=== PATIENT | female | born 1955 | race Caucasian/White ===

== ENCOUNTER 2022-12-26 09:59 | Outpatient (CLI) | payer SELFPAY ==
--- NOTE | 2022-12-27 12:34 | XRAY Report ---
PROCEDURE: Cervical Spine 2 View INDICATIONS: CERVICAL RADICULPATHY TECHNIQUE: 3 view(s) of the cervical spine were acquired. COMPARISON: None. FINDINGS: Bones: No fractures or dislocations to the C7 level. The lateral masses of C1 appear intact on the odontoid view. No suspicious bony lesions. Multilevel degenerative disc disease, moderate at C3-C4 and C4-C5, and mild at C2-C3, C5-C6 and C6-C7. Bilateral facet arthropathy scattered in cervical spin e, most pronounced and moderate at C4-C5. Soft tissues: No prevertebral soft tissue swelling. IMPRESSION: 1. Degenerative disc and facet disease in cervical spine. Consider MRI for further evaluation if clin ical symptoms persist. Reviewed by: Isidra Headley MD on 12/27/2022 12:33 PM PDT Approved by: Isidra Headley MD on 12/27/2022 12:33 PM PDT Station ID: [id number]
== END 2022-12-26 10:00 | disposition home or self-care (01) ==
LOC: DI 09:59
PROVIDERS: ATTEND Registered Nurse
DX: M50.31 Other cervical disc degeneration, high cervical region (principal); M47.812 Spondylosis without myelopathy or radiculopathy, cervical region

== ENCOUNTER 2024-03-27 14:00 | Outpatient (CLI) | payer SELFPAY | END 2024-03-27 23:59 | disposition short-term general hospital (02) | LOC: EMS 14:00 | PROVIDERS: ATTEND Emergency Medicine | DX: R11.2 Nausea with vomiting, unspecified (principal); R42 Dizziness and giddiness | CPT/HCPCS: A0425; A0427 ==

== ENCOUNTER 2025-08-02 09:57 | Inpatient (IN) ==
[2025-08-02] MEDS: HYDROmorphone 1 MG/ML CARPUJECT IVP STA (10:21)
--- NOTE | 2025-08-02 10:23 | ED Physician Documentation ---
History of Present Illness Stated complaint Stated Complaint: L HIP PX Chief complaint Chief Complaint: Trauma Ext History obtained from History obtained from: Patient and EMS History of Present Illness Pain level max: 10 Pain level now: 5 Additonal information Additional information: Patient is a 69-year-old female who presents to the emergency department after a trip and fall this morning. She states that she was walking, felt dizzy and lost her balance. She fell landing on her cane. No head, neck, back pain. Not on blood thinners. Complains of left hip pain and left knee pain. No chest pain or palpitations. No seizure activity. Given fentanyl by EMS. [place] Coma Scale Assess Eye opening: Spontaneous Verbal response: Oriented Motor response: Obeys Commands Total score: 15 Review of Systems Constitutional Denies: Fever or Chills Gastrointestinal Denies: Nausea or Vomiting Integumentary/Breast Denies: Rash Neurological Denies: Headache Meds/Allgy Home Medications Ambulatory Orders Medication Instructions Recorded Confirmed amlodipine 5 mg tablet 5 mg PO DAILY 08/02/2508/02 atorvastatin 20 mg tablet 20 mg PO HS 08/02/25 bupropion HCl 150 mg 24 hr tablet, 150 mg PO DAILY 08/02/25 extended release ibuprofen 200 mg tablet (Advil) 400 mg PO BID PRN feve r or pain 08/02/25 08/02/25 losartan 100 mg tablet 100 mg PO DAILY 08/02/25 metformin 500 mg tablet,extended 500 mg PO BID 5 08/02/25 release 24 hr Allergies Allergies Allergy/AdvReac Type Severity Reaction Status Date / Time codeine AdvReac Mild Itching Verified 08/02/25 10:07 PFSH Active Problems All Active Problems (Updated 08/02/25 @ 11:05 by Chai Ferreira RN) Fracture of left hip (Acute) Medical History Medical History (Updated 08/02/25 @ 11:05 by Chai Ferreira RN) DM2 (diabetes mellitus, type 2) HLD (hyperlipidemia) HTN (hypertension) TIA (transient ischemic attack) Surgical History Surgical History (Updated 08/02/25 @ 11:05 by Chai Ferreira RN) Hx of exploratory laparotomy Hx of hysterectomy Hx of tonsillectomy Social History Social History (Updated 08/02/25 @ 11:05 by Chai Ferreira RN) Do you dip or chew tobacco?: No Do you vape?: No Living arrangement: At home Level: Independent Do you feel safe in your home environment?: Yes History of physical, verbal, emotional, or financial abuse?: No Exam Exam Vital Signs: Vital Signs x48h Temp Pulse Resp BP Pulse Ox O2 Flow Rate 08/02/25 13:00 79 18 179/84 H 95 08/02/25 12:51 78 18 178/86 H 92 08/02/25 11:32 75 14 93 2 08/02/25 11:30 75 14 88 L 08/02/25 11:23 79 18 191/87 H 94 08/02/25 11:07 80 18 167/97 H 97 08/02/25 10:52 76 18 193/94 H 92 08/02/25 10:07 36.5 C 75 20 213/90 H 97 Constitutional normal general appearance and no apparent distress HENMT normocephalic, head/scalp atraumatic and TMs normal bilaterally Eyes PERRL and EOMs intact bilaterally Neck/C-Spine visual inspection normal, trachea midline, cervical spine nontender and cervical full ROM noted No tenderness to palpation or percussion. No step-off or deformity. Chest inspection of chest normal and palpation of chest normal Respiratory breath sounds equal bilaterally, normal respiratory effort and clear to auscultation bilaterally Cardiovascular normal heart rate noted and regular rhythm noted Gastrointestinal abdomen normal to inspection, abdomen soft to palpation, nontender to palpation, nontender to percussion and nondistended Genitourinary no CVA tenderness Back/Pelvis spine normal to inspection, no thoracic spine tenderness and no lumbar spine tenderness No tenderness to palpation or percussion. No step-off or deformity over the thoracolumbar spine Extremities full ROM Normal examination of the right leg. Left leg is externally rotated and shortened. Severe pain with any motion of the hip. Neurovascular intact. Also has some mild diffuse tenderness over the left knee. No deformity. No swelling. Neurology financial recruiter II-XII intact and GCS 15 Psychiatry mental status grossly normal and oriented x3 Skin skin color normal Results Vitals Vitals: Vital Signs - 24 hr 08/02/25 10:07 08/02/25 10:21 08/02/25 10:52 Temperature 36.5 C Temperature Source Temporal Artery Scan Pulse Rate 75 76 Respiratory Rate 20 18 Blood Pressure 213/90 H 193/94 H O2 Saturation 97 92 Oxygen Delivery Method O2 Source Room air Room air Oxygen Flow Rate If not protocol: Oxygen Flow, liters/minute Pain Intensity 3 8 08/02/25 11:07 08/02/25 11:22 08/02/25 11:23 Temperature Temperature Source Pulse Rate 80 79 Respiratory Rate 18 18 Blood Pressure 167/97 H 191/87 H O2 Saturation 97 94 Oxygen Delivery Method O2 Source Room air Room air Oxygen Flow Rate If not protocol: Oxygen Flow, liters/minute Pain Intensity 8 7 7 08/02/25 11:30 08/02/25 11:30 08/02/25 11:32 Temperature Temperature Source Pulse Rate 75 75 Respiratory Rate 14 14 Blood Pressure O2 Saturation 88 L 93 Oxygen Delivery Method Nasal Cannula O2 Source Room air Nasal cannula Oxygen Flow Rate 2 If not protocol: Oxygen Flow, liters/minute 2 Pain Intensity 08/02/25 11:56 08/02/25 12:51 08/02/25 13:00 Temperature Temperature Source Pulse Rate 78 79 Respiratory Rate 18 18 Blood Pressure 178/86 H 179/84 H O2 Saturation 92 95 Oxygen Delivery Method O2 Source Room air Room air Oxygen Flow Rate If not protocol: Oxygen Flow, liters/minute Pain Intensity 7 4 6 Oxygen O2 Source Room air Oxygen Flow Rate 2 Labs Labs: Laboratory Tests 08/02/25 11:02 WBC 10.5 RBC 4.45 Hgb 12.9 Hct 40.9 MCV 91.9 MCH 29.0 MCHC 31.5 L RDW 13.9 Plt Count 128 L MPV 10.5 Neut # (Auto) 8.3 H Lymph # (Auto) 1.3 L [place] # (Auto) 0.7 Eos # (Auto) 0.1 Baso # (Auto) 0.1 Absolute Nucleated RBC 0.00 Nucleated RBC % 0.0 Sodium 139 Potassium 4.0 Chloride 105 Carbon Dioxide 28 Anion Gap 6.0 BUN 18 Creatinine 0.8 Estimated GFR (MDRD) 71 L Glucose 169 H Calcium 9.0 Total Bilirubin 0.8 AST 14 ALT 17 Alkaline Phosphatase 76 Total Protein 6.5 Albumin 3.9 Globulin 2.6 Albumin/Globulin Ratio 1.5 Rads (name of study) Left hip x-ray, left knee x-ray: Relevant Findings:: Final report received PD Medical Decision Making ED course Complexity details: reviewed results, re-evaluated patient, considered differential and d/w patient ED course: Patient is a 6-year-old female who presents to the emergency department after ground-level fall. Found to have a left hip fracture, displaced intertrochanter fracture with extension to the proximal femoral diaphysis. No acute findings on x-ray of the left knee. Given Dilaudid and Valium for pain. Anesthesia consulted and will come perform a fascia iliac a block. Will admit the patient to the hospitalist service. Discussed with Dr. Morales, orthopedics who will consult on the patient and plan for OR in the morning. Discussed with hospitalist who accepts This document was made in part using voice recognition software. While efforts are made to proofread this document, sound alike and grammatical errors may occur. Discharge Plan Discharge Patient Disposition: 66 [facility] DC/Xfer Condition: Stable Clinical Impression: Fracture of left hip Qualifiers: Encounter type: initial encounter Fracture type: closed Qualified Code(s): S72.002A - Fracture of unspecified part of neck of left femur, initial encounter for closed fracture Prescriptions: No Action atorvastatin 20 mg tablet 20 mg PO HS Patient Comments: TAKE ONE TABLET BY MOUTH NIGHTLY AT BEDTIME for cholesterol amlodipine 5 mg tablet 5 mg PO DAILY Patient Comments: TAKE ONE TABLET BY MOUTH ONE TIME DAILY losartan 100 mg tablet 100 mg PO DAILY Patient Comments: TAKE ONE TABLET BY MOUTH ONE TIME DAILY for blood pressure metformin 500 mg tablet extended release 24 hr 500 mg PO BID Patient Comments: TAKE ONE TABLET BY MOUTH TWICE DAILY for diabetes bupropion HCl 150 mg tablet extended release 24 hr 150 mg PO DAILY Patient Comments: TAKE ONE TABLET BY MOUTH EVERY MORNING ibuprofen [Advil] 200 mg tablet 400 mg PO BID PRN (Reason: fever or pain) Print Language: Com[place]an
--- NOTE | 2025-08-02 10:58 | XRAY Report ---
PROCEDURE: XR Hip w/Pelvis 2-3V LT INDICATIONS: fall, pain TECHNIQUE: AP pelvis with lateral view(s) of the hip(s). COMPARISON: None. FINDINGS: Bones: Comminuted fracture is present at the proximal femoral diaphysis. There is involvement of the lesser trochanter. Ill-defined suspected nondisplaced fracture lucency also extends to the greater trochanter. No dislocation at the hip joint. Soft tissues: No suspicious soft tissue calcifications or masses. IMPRESSION: Mildly displaced intertrochanteric fracture with extension to the proximal femoral diaphysis. Reviewed by: Alva Garcia MD on 08/02/2025 10:54 AM [facility] Approved by: Alva Garcia MD on 08/02/2025 10:54 AM PST Station ID: [id number]
--- NOTE | 2025-08-02 10:58 | XRAY Report ---
PROCEDURE: XR Knee 3V LT INDICATIONS: fall, pain TECHNIQUE: 3 views of the knee(s) were acquired. COMPARISON: None. FINDINGS: Bones: No fractures or dislocations. No suspicious bony lesions. Moderate to severe tricompartmental arthritic change. There is lateral patellar subluxation. Soft tissues: Minimal knee joint effusion. No suspicious soft tissue calcifications or masses. IMPRESSION: No visualized acute fracture or dislocation. However, occult injury can not be excluded. Recommend short interval imaging follow-up in 7-10 days as clinically indicated for additional evaluation. Reviewed by: Alva Garcia MD on 08/02/2025 10:55 AM [facility] Approved by: Alva Garcia MD on 08/02/2025 10:55 AM [facility] Station ID: [id number]
[2025-08-02 11:07] LABS: HCT - HEMATOCRIT 40.9 % (37.0-47.0); HGB - HEMOGLOBIN 12.9 g/dL (12.0-16.0); MEAN PLATELET VOLUME 10.5 fL (7.9-10.8); NRBC ABSOLUTE COUNT (AUTO) 0.00 x10^3/uL; NUCLEATED RED BLOOD CELLS AUTO 0.0 /100WBC; PLT - PLATELET COUNT 128 10^3/uL (130-450); RED CELL DISTRIBUTION WIDTH 13.9 % (12.0-15.0)
--- NOTE | 2025-08-02 11:14 | HISTORY & PHYSICAL EXAMINATION ---
Chief Complaint Chief Complaint Chief Complaint: Fall at home History of Present Illness Admitted From Admitted From:: Home History Obtained From Records Reviewed: EMR History obtained from: Patient Exam Limitations: None History of Present Illness HPI Comment/Other: Patient is a 69 year old female with a history of insulin dependent diabetes mellitus, hypertension who presents after a ground level fall. Per patient, since 2022, and her TIA, she has had increased episodes of vertigo. When seasons change, like right now from fall to winter, she has increased episodes of vertigo. She has bilateral ear fullness, as well as sinus congestion which triggers this. This morning, she was walking towards the kitchen. She leaned forward to take out her tapioca pudding, and had an episode of vertigo, and fell forward onto her left hip. She has had severe pain since then. He has been Past medical history includes TIA, hyperlipidemia, hypertension, [id number] diabetes mellitus. She has no cardiac history. She does have chronic arthritis in multiple joints, requiring her to use a walker to ambulate. Medications include metformin, losartan, amlodipine, bupropion. She is not on an blood thinners. She has no known drug allergies. Codeine does cause her to feel nauseous. Surgical history includes , hysterectomy. She has not had any adverse reactions to anesthesia. She denies any alcohol use. She uses edible marijuana for pain relief. She smokes half a pack of cigarettes per day. She lives with her son. Ambulates with walker. Meds/Allgy Home Medications Ambulatory Orders Medication Instructions Recorded Confirmed amlodipine 5 mg tablet 5 mg PO DAILY 08/02/2508/02 atorvastatin 20 mg tablet 20 mg PO HS 08/02/25 bupropion HCl 150 mg 24 hr tablet, 150 mg PO DAILY 08/02/25 extended release ibuprofen 200 mg tablet (Advil) 400 mg PO BID PRN feve r or pain 08/02/25 08/02/25 losartan 100 mg tablet 100 mg PO DAILY 08/02/25 metformin 500 mg tablet,extended 500 mg PO BID 08/02/25 release 24 hr Allergies Allergies Allergy/AdvReac Type Severity Reaction Status Date / Time codeine AdvReac Mild Itching Verified 08/02/25 10:07 [facility] Active Problems All Active Problems Fracture of left hip (Acute) Medical History Medical History DM2 (diabetes mellitus, type 2) HLD (hyperlipidemia) HTN (hypertension) TIA (transient ischemic attack) Surgical History Surgical History Hx of exploratory laparotomy Hx of hysterectomy Hx of tonsillectomy Social History Social History Smoking Status: Current every day smoker Do you dip or chew tobacco?: No Do you vape?: No Living arrangement: At home Level: Assisted Do you feel safe in your home environment?: Yes History of physical, verbal, emotional, or financial abuse?: No Substance Use: cannabis (any form) Substance Use Details: edibles for nighttime and pain relief POLST Patient has POLST: No Review of Systems Constitutional Denies: Fatigue, Fever, Chills, Malaise, Weakness or Poor appetite Eyes Denies: Pain or Irritation Ears, nose, mouth, and throat Reports: Nasal congestion, Post nasal drip and Vertigo; Denies: Ear pain, Hearing loss, Tinnitus, Nose bleeds or Nasal discharge Cardiovascular Denies: Irregular heart rate, chest pain, palpitations, edema, Syncope or shortness of breath with exertion Respiratory Denies: Shortness of breath, Cough or Sputum production Gastrointestinal Denies: Abdominal pain, Abdominal distention, Nausea or Vomiting Genitourinary Denies: Painful urination, Urinary frequency or Urinary urgency Musculoskeletal Reports: Back pain, Extremity pain and Joint pain; Denies: Extremity swelling Integumentary/Breast Denies: Rash, Itching, Dryness, Redness or Skin pain Neurological Reports: General weakness and Vertigo; Denies: Headache, Weakness in extremities, Numbness in extremities, Abnormal gait or Dizziness Psychiatric Denies: Depression, Anxiety or Mood swings Endocrine Denies: Excessive urination, Excessive thirst or Fatigue Hematologic/Lymphatic Denies: Anemia or Easy bruising Allergic/Immunologic Denies: Hives or Tongue swelling Prior Level of Functionality: Lives alone. Largely independent of ADLs. Exam Exam Vital Signs: Vital Signs x48h Temp Pulse Pulse Resp BP BP Pulse Ox 08/02/25 15:30 97.9 F 80 20 175/83 H 94 08/02/25 15:16 76 18 183/116 H 94 08/02/25 14:48 82 18 177/117 H 95 08/02/25 14:24 82 17 188/85 H 97 08/02/25 13:00 79 18 179/84 H 95 08/02/25 12:51 78 18 178/86 H 92 08/02/25 11:32 75 14 93 08/02/25 11:30 75 14 88 L 08/02/25 11:23 79 18 191/87 H 94 08/02/25 11:07 80 18 167/97 H 97 08/02/25 10:52 76 18 193/94 H 92 08/02/25 10:07 97.7 F 75 20 213/90 H 97 O2 Flow Rate 08/02/25 15:30 08/02/25 15:16 08/02/25 14:48 08/02/25 14:24 08/02/25 13:00 08/02/25 12:51 08/02/25 11:32 2 08/02/25 11:30 08/02/25 11:23 08/02/25 11:07 08/02/25 10:52 08/02/25 10:07 Constitutional normal general appearance, distress noted (moderate), abnormal body habitus (obese) and no limitations HENMT normocephalic, head/scalp atraumatic and hearing grossly normal bilaterally Eyes PERRL and EOMs intact bilaterally Neck/C-Spine visual inspection normal and trachea midline Chest inspection of chest normal Respiratory breath sounds equal bilaterally, normal respiratory effort, clear to auscultation bilaterally, no wheezes, no rales and no retractions Cardiovascular normal heart rate noted, regular rhythm noted, no gallop, no rub and murmur noted (systolic) Gastrointestinal abdomen normal to inspection, abdomen soft to palpation, nontender to palpation and normoactive bowel sounds Genitourinary no CVA tenderness and bladder normal to palpation Back/Pelvis spine normal to inspection Neurology no movement abnormality noted and no focal motor deficit noted Left lower extremity externally rotated, tenderness to even light palpation. Psychiatry mental status grossly normal, oriented x3, thought process normal, cooperative and affect normal Skin skin color normal, no rash, no lesions and no wounds Conclusion/Plan Problem List (1) Fracture of left hip: Plan: Patient presented after a mechanical fall. Hip x-ray shows mildly displaced intertrochanteric fracture with extension to the proximal femoral diaphysis. Orthopedic surgery consulted. NPO at midnight. DVT prophylaxis held until post surgery in AM. Continue Tylenol as needed for mild pain, oxycodone as needed for moderate pain, Dilaudid as needed for severe pain. Flexeril as needed as well. RCRI of 1 for history of vascular disease with previous TIA. 1.1% risk of major cardiac event. METS of 3-4. Patient is able to ambulate up a flight of stairs, but has difficulty due to underlying osteoarthritis. No active chest pain, CHF symptoms, etc. EKG ordered. Will consult PT after, patient will likely require SNF on discharge. Qualifiers: Encounter type: initial encounter Fracture type: closed Qualified Code(s): S72.002A - Fracture of unspecified part of neck of left femur, initial encounter for closed fracture (2) DM2 (diabetes mellitus, type 2): Plan: Patient takes metformin at home. Continue low-dose sliding scale while here. Carb controlled diet. Qualifiers: Diabetes mellitus complication status: without complication Diabetes mellitus credit cashier insulin use: without mcfp use Qualified Code(s): E11.9 - Type 2 diabetes mellitus without complications (3) HLD (hyperlipidemia): Plan: Continue statin. Qualifiers: Hyperlipidemia type: unspecified Qualified Code(s): E78.5 - Hyperlipidemia, unspecified (4) HTN (hypertension): Plan: Continue losartan, amlodipine. Qualifiers: Hypertension type: unspecified Qualified Code(s): I10 - Essential (primary) hypertension Lab Results Lab results reviewed: Yes 08/02/25 11:02 08/02/25 11:02 Diagnostic Imaging Results Diagnostic Imaging Results: positive Final report reviewed Core Measures Anticipated LOS I expect patient to be DC'd or transferred within 96 hours.: Yes DVT/VTE - Prophylaxis VTE/DVT Device ordered at admit?: No VTE/DVT Prophylaxis med ordered at admit?: Yes Stroke - Rehab Assessment Rehab services assessment to be ordered?: Yes AMI - Statin at Admit Aspirin Prescribed on Admit: No Not Ordered - Medical Reason: Not indicated
[2025-08-02 11:21] LABS: ALT ALANINE AMINOTRANSFERASE 17.0 IU/L (10-60); AST ASPARTATE AMINOTRANSFERASE 14.0 IU/L (10-42); BUN - BLOOD UREA NITROGEN 18.0 mg/dL (6-20); CARBON DIOXIDE - CO2 28.0 mmol/L (21-32); CREATININE 0.8 mg/dL (0.6-1.3); GFR - MDRD 71.0 (>89)
[2025-08-02] MEDS: diazePAM INJ 5 MG/ML SYRINGE IVP STA (11:21)
[2025-08-02] MEDS: SODIUM CHLORIDE 0.9% 1,000 ML IV STA (11:50)
[2025-08-02] MEDS: HYDROmorphone 1 MG/ML CARPUJECT IVP PRN (11:56)
[2025-08-02] MEDS ORDERED: ROPIVACAINE 0.5% PF 20 ML VIAL ONE (13:35)
[2025-08-02] MEDS ORDERED: SODIUM CHLORIDE FLUSH 0.9% 10 ML SYRINGE IVP PRN (15:24)
[2025-08-02] MEDS: SODIUM CHLORIDE FLUSH 0.9% 10 ML SYRINGE IVP SCH (16:39)
[2025-08-02] MEDS: oxyCODONE 5 MG TABLET PO PRN (16:39)
[2025-08-02] MEDS ORDERED: ONDANSETRON 4 MG/2 ML VIAL IVP PRN (17:00)
[2025-08-02] MEDS ORDERED: ONDANSETRON ODT 4 MG TABLET TL PRN (17:00)
[2025-08-02] MEDS: BACLOFEN 10 MG TABLET PO PRN (17:13)
[2025-08-02] MEDS: METOCLOPRAMIDE 10 MG/2 ML VIAL IVP PRN (17:14)
--- NOTE | 2025-08-02 17:47 | PHARMACY PROGRESS NOTE ---
Best Possible Medication History Admit Date and Time: 08/02/25 [id number] Home Medications Medication Instructions Recorded Confirmed Type amlodipine 5 mg tablet 5 mg PO DAILY 08/02/2508/02 History atorvastatin 20 mg tablet 20 mg PO HS 08/02/25 History bupropion HCl 150 mg 24 hr tablet, 150 mg PO DAILY 08/02/25 History extended release ibuprofen 200 mg tablet (Advil) 400 mg PO BID PRN feve r or pain 08/02/25 08/02/25 History losartan 100 mg tablet 100 mg PO DAILY PM 08/02/25 08/02/25 History metformin 500 mg tablet,extended 500 mg PO BID 08/02/25 History release 24 hr Processed by: Pharmacy Medications reviewed in ED?: Yes Medication History completed: Yes Patient Interview: Completed Secondary Source(s): Insurance records [facility] Statement: As the person ultimately responsible for medication therapy, providers are able to order a medication from an existing home medication list in [facility] via the "Reconcile Routine" prior to Confirmation of that medication by academic support director. Such practice is discouraged except when the physician, in their clinical judgment, deems that a medical need exists for a medication without regard to previous use.
[2025-08-02] MEDS: INSULIN LISPRO 300 UNIT/3 ML PEN SUBQ SCH (19:14)
[2025-08-02] MEDS: CALCIUM CARBONATE CHEW 500 MG TABLET PO SCH (21:33)
[2025-08-02] MEDS: ATORVASTATIN 10 MG TABLET PO SCH (21:33)
[2025-08-03 06:17] LABS: HCT - HEMATOCRIT 37.9 % (37.0-47.0); HGB - HEMOGLOBIN 12.4 g/dL (12.0-16.0); MEAN PLATELET VOLUME 11.3 fL (7.9-10.8); PLT - PLATELET COUNT 107.0 10^3/uL (130-450); RED CELL DISTRIBUTION WIDTH 13.9 % (12.0-15.0)
[2025-08-03 06:37] LABS: BUN - BLOOD UREA NITROGEN 15.0 mg/dL (6-20); CARBON DIOXIDE - CO2 26.0 mmol/L (21-32); CREATININE 0.7 mg/dL (0.6-1.3); GFR - MDRD 83.0 (>89)
--- NOTE | 2025-08-03 08:27 | CONSULTATION NOTE ---
Chief Complaint Chief Complaint Chief Complaint: L IT fx s/p fall History of Present Illness History of Present Illness HPI Comment/Other: consulted on this 69 yo F for Mildly displaced L intertrochanteric fracture with extension to the proximal femoral diaphysis. Per patient, since 2022, and her TIA, she has had increased episodes of vertigo. This morning, she was walking towards the kitchen and had an episode of vertigo, and fell forward onto her left hip. She has had severe pain since then. Past medical history includes TIA, hyperlipidemia, hypertension, [id number] diabetes mellitus. She has no cardiac history. She does have chronic arthritis in multiple joints, requiring her to use a walker to ambulate. PFSH Active Problems All Active Problems (Updated 08/03/25 @ 08:45 by Amalia Wong PA-C) Fall (Acute) Fracture of left hip (Acute) Medical History Medical History DM2 (diabetes mellitus, type 2) HLD (hyperlipidemia) HTN (hypertension) TIA (transient ischemic attack) Surgical History Surgical History Hx of exploratory laparotomy Hx of hysterectomy Hx of tonsillectomy Social History Social History Smoking Status: Current every day smoker Do you dip or chew tobacco?: No Do you vape?: No Living arrangement: At home Level: Assisted Home Mobility Equipment: Cane and Walker Do you feel safe in your home environment?: Yes History of physical, verbal, emotional, or financial abuse?: No Substance Use: cannabis (any form) Substance Use Details: edibles for nighttime and pain relief POLST Patient has POLST: No Meds/Allgy Home Medications Ambulatory Orders Medication Instructions Recorded Confirmed amlodipine 5 mg tablet 5 mg PO DAILY 08/02/2508/02 atorvastatin 20 mg tablet 20 mg PO HS 08/02/25 5 bupropion HCl 150 mg 24 hr tablet, 150 mg PO DAILY 08/02/25 extended release ibuprofen 200 mg tablet (Advil) 400 mg PO BID PRN feve r or pain 08/02/25 08/02/25 losartan 100 mg tablet 100 mg PO DAILY PM 08/02/25 08/02/25 metformin 500 mg tablet,extended 500 mg PO BID 5 08/02/25 release 24 hr Allergies Allergies Allergy/AdvReac Type Severity Reaction Status Date / Time codeine AdvReac Mild Itching Verified 08/02/25 10:07 Results Lab Results Lab results reviewed: Yes 08/03/25 05:15 08/03/25 05:15 Other Lab Results: Lab Results x24hrs 08/03/25 08/03/25 08/02/25 Range/Units 08:20 05:15 21:02 WBC 10.4 (4.8-10.8) x10^3/uL RBC 4.15 L (4.20-5.40) 10^6/uL Hgb 12.4 (12.0-16.0) g/dL Hct 37.9 (37.0-47.0) % MCV 91.3 (81.0-99.0) fL MCH 29.9 (27.0-31.0) pg MCHC 32.7 (32.0-36.0) g/dL RDW 13.9 (12.0-15.0) % Plt Count 107 L (130-450) 10^3/uL MPV 11.3 H (7.9-10.8) fL Neut # (Auto) (1.5-6.6) 10^3/uL Lymph # (Auto) (1.5-3.5) 10^3/uL [place] # (Auto) (0.0-1.0) 10^3/uL Eos # (Auto) (0.0-0.7) 10^3/uL Baso # (Auto) (0.0-0.1) 10^3/uL Absolute Nucleated RBC x10^3/uL Nucleated RBC % /100WBC Sodium 140 (135-145) mmol/L Potassium 3.7 (3.5-4.5) mmol/L Chloride 106 (101-111) mmol/L Carbon Dioxide 26 (21-32) mmol/L Anion Gap 8.0 (6-13) BUN 15 (6-20) mg/dL Creatinine 0.7 (0.6-1.3) mg/dL Estimated GFR (MDRD) 83 L (>89) Glucose 112 H (74-104) mg/dL POC Whole Bld Glucose 125 184 (70-100) mg/dL Calcium 9.0 (8.5-10.3) mg/dL Magnesium 1.9 (1.7-2.3) mg/dL Total Bilirubin (0.2-1.0) mg/dL AST (10-42) IU/L ALT (10-60) IU/L Alkaline Phosphatase (42-121) IU/L Total Protein (6.4-8.9) g/dL Albumin (3.2-5.5) g/dL Globulin (2.1-4.2) g/dL Albumin/Globulin Ratio (1.0-2.2) 08/02/25 08/02/25 Range/Units 15:47 11:02 WBC 10.5 (4.8-10.8) x10^3/uL RBC 4.45 (4.20-5.40) 10^6/uL Hgb 12.9 (12.0-16.0) g/dL Hct 40.9 (37.0-47.0) % MCV 91.9 (81.0-99.0) fL MCH 29.0 (27.0-31.0) pg MCHC 31.5 L (32.0-36.0) g/dL RDW 13.9 (12.0-15.0) % Plt Count 128 L (130-450) 10^3/uL MPV 10.5 (7.9-10.8) fL Neut # (Auto) 8.3 H (1.5-6.6) 10^3/uL Lymph # (Auto) 1.3 L (1.5-3.5) 10^3/uL [place] # (Auto) 0.7 (0.0-1.0) 10^3/uL Eos # (Auto) 0.1 (0.0-0.7) 10^3/uL Baso # (Auto) 0.1 (0.0-0.1) 10^3/uL Absolute Nucleated RBC 0.00 x10^3/uL Nucleated RBC % 0.0 /100WBC Sodium 139 (135-145) mmol/L Potassium 4.0 (3.5-4.5) mmol/L Chloride 105 (101-111) mmol/L Carbon Dioxide 28 (21-32) mmol/L Anion Gap 6.0 (6-13) BUN 18 (6-20) mg/dL Creatinine 0.8 (0.6-1.3) mg/dL Estimated GFR (MDRD) 71 L (>89) Glucose 169 H (74-104) mg/dL POC Whole Bld Glucose 155 (70-100) mg/dL Calcium 9.0 (8.5-10.3) mg/dL Magnesium (1.7-2.3) mg/dL Total Bilirubin 0.8 (0.2-1.0) mg/dL AST 14 (10-42) IU/L ALT 17 (10-60) IU/L Alkaline Phosphatase 76 (42-121) IU/L Total Protein 6.5 (6.4-8.9) g/dL Albumin 3.9 (3.2-5.5) g/dL Globulin 2.6 (2.1-4.2) g/dL Albumin/Globulin Ratio 1.5 (1.0-2.2) Diagnostic Imaging Results Diagnostic Imaging Results: positive Final report reviewed Diagnostic Imaging Results Comments: L hip & pelvis XR: Mildly displaced L intertrochanteric fracture with extension to the proximal femoral diaphysis. L knee XR: no acute fx/dislocation Review of Systems Status of ROS: 10 or more systems reviewed and unremarkable except as noted in history and below Exam Exam Vital Signs: Vital Signs x48h Temp Pulse Resp BP Pulse Ox 08/03/25 08:02 36.6 C 85 18 187/85 H 93 General appearance: alert, awake, oriented x 3, well-nourished, elevated BMI, painful distress Fracture: L hip IT fx Head/Eyes: atraumatic Extremities/Vascular: pedal pulses intact, radial pulses intact Musculoskeletal: LLE shortened & ER; Neuro/ROBOT TECHNICIAN: alert, follows commands; NVI Skin: warm, dry, intact, without erythema, warmth, ecchymosis LLE Psychiatry: normal affect Conclusion/Plan Problem List (1) Fracture of left hip: Qualifiers: Encounter type: initial encounter Fracture type: closed Qualified Code(s): S72.002A - Fracture of unspecified part of neck of left femur, initial encounter for closed fracture (2) Fall: Qualifiers: Encounter type: initial encounter Qualified Code(s): W19.XXXA - Unspecified fall, initial encounter (3) DM2 (diabetes mellitus, type 2): Qualifiers: Diabetes mellitus complication status: without complication Diabetes mellitus half-way insulin use: without half-way use Qualified Code(s): E11.9 - Type 2 diabetes mellitus without complications (4) HLD (hyperlipidemia): Qualifiers: Hyperlipidemia type: unspecified Qualified Code(s): E78.5 - Hyperlipidemia, unspecified (5) HTN (hypertension): Qualifiers: Hypertension type: unspecified Qualified Code(s): I10 - Essential (primary) hypertension Plan Bedrest pending OR this am with Dr. Morales for IM boyd L hip Med mgmt/pain control per internal medicine NPO/IVF Start DVT chemoprophylaxis postop D/w Dr. Morales who is in agreement with this plan Lab Results Lab results reviewed: Yes 08/03/25 05:15 08/03/25 05:15 Diagnostic Imaging Results Diagnostic Imaging Results: positive Final report reviewed
[2025-08-03] MEDS ORDERED: LIDOCAINE-PF 2% 10 ML AMP SUBQ ONE (09:02)
[2025-08-03] MEDS ORDERED: PROPOFOL 200 MG/20 ML VIAL IVP ONE ×3 (09:02→11:00)
[2025-08-03] MEDS ORDERED: BUPIVACAINE 0.25% PF 30 ML VIAL ONE (09:06)
[2025-08-03] MEDS: CHOLECALCIFEROL 25 MCG TABLET PO SCH (09:14)
[2025-08-03] MEDS: NYSTATIN POWDER 15 GM TOP SCH (09:14)
[2025-08-03] MEDS: LOSARTAN 50 MG TABLET PO SCH (09:14)
--- NOTE | 2025-08-03 09:15 | ANESTHESIA PROCEDURE NOTE ---
Pre-Anesthesia VS, & Labs Diagnosis Surgical Diagnosis:: L hip fracture Procedure Procedure: L hip nailing Vitals Vital Signs: Temp Pulse Resp BP Pulse Ox O2 Flow Rate 36.6 C 85 18 187/85 H 93 2 08/03/25 08:02 08/03/25 08:02 08/03/25 08:02 08/03/25 08:02 08/03/25 08:02 08/02/25 11:32 NPO NPO: >8 hours Is Patient ?: No and Not Applicable Lab Results Current Lab Results: Laboratory Tests 08/03/25 08:20: POC Whole Bld Glucose 125 08/03/25 05:15: WBC 10.4, RBC 4.15 L, Hgb 12.4, Hct 37.9, MCV 91.3, MCH 29.9, MCHC 32.7, RDW 13.9, Plt Count 107 L, MPV 11.3 H, Sodium 140, Potassium 3.7, Chloride 106, Carbon Dioxide 26, Anion Gap 8.0, BUN 15, Creatinine 0.7, E stimated GFR (MDRD) 83 L, Glucose 112 H, Calcium 9.0, Magnesium 1.9 08/02/25 21:02: POC Whole Bld Glucose 184 08/02/25 15:47: POC Whole Bld Glucose 155 08/02/25 11:02: WBC 10.5, RBC 4.45, Hgb 12.9, Hct 40.9, MCV 91.9, MCH 29.0, MCHC 31.5 L, RDW 13.9, Plt Count 128 L, MPV 10.5, Neut # (Auto) 8.3 H, Lymph # (Auto) 1.3 L, [place] # (Auto) 0.7, Eos # (Auto) 0.1, Baso # (Auto) 0.1, Absolute Nucleated RBC 0.00, Nucleated RBC % 0.0, Sodium 139, Potassium 4.0, Chloride 105, Carbon Dioxide 28, Anion Gap 6.0, BUN 18, Creatinine 0.8, Estimated GFR (MDRD) 71 L, Glucose 169 H, Calcium 9.0, Total Bilirubin 0.8, AST 14, ALT 17, Alkaline Phosphatase 76, Total Protein 6.5, Albumin 3.9, Globulin 2.6, Albumin/Globulin Ratio 1.5 08/03/25 05:15 08/03/25 05:15 Meds/Allgy Home Medications Ambulatory Orders Medication Instructions Recorded Confirmed amlodipine 5 mg tablet 5 mg PO DAILY 08/02/2508/02 atorvastatin 20 mg tablet 20 mg PO HS 08/02/25 bupropion HCl 150 mg 24 hr tablet, 150 mg PO DAILY 08/02/25 extended release ibuprofen 200 mg tablet (Advil) 400 mg PO BID PRN feve r or pain 08/02/25 08/02/25 losartan 100 mg tablet 100 mg PO DAILY PM 08/02/25 08/02/25 metformin 500 mg tablet,extended 500 mg PO BID 5 08/02/25 release 24 hr Allergies Allergies Allergy/AdvReac Type Severity Reaction Status Date / Time codeine AdvReac Mild Itching Verified 08/02/25 10:07 PFSH Active Problems All Active Problems Fall (Acute) Fracture of left hip (Acute) Medical History Medical History DM2 (diabetes mellitus, type 2) HLD (hyperlipidemia) HTN (hypertension) TIA (transient ischemic attack) Surgical History Surgical History Hx of exploratory laparotomy Hx of hysterectomy Hx of tonsillectomy Social History Social History Smoking Status: Current every day smoker Do you dip or chew tobacco?: No Do you vape?: No Living arrangement: At home Level: Assisted Home Mobility Equipment: Cane and Walker Do you feel safe in your home environment?: Yes History of physical, verbal, emotional, or financial abuse?: No Substance Use: cannabis (any form) Substance Use Details: edibles for nighttime and pain relief POLST Patient has POLST: No POLST CPR Status: Attempt Resuscitation (CPR) Level of Medical Intervention: Full Treatment Anesthesia Exam (Expanded) Exam General: Alert, Oriented x3 and Cooperative Dental: Poor dentition (many missing teeth throughout. remaining teeth are broken and rotten ) Mouth Openin Fingerbreadth Neck Mobility: Normal Mallampati classification: II Thyromental Distance: 4-6 cm Exam Exam Vital Signs: Vital Signs x48h Temp Pulse Resp BP Pulse Ox 08/03/25 08:02 36.6 C 85 18 187/85 H 93 Plan Problem List (1) Fracture of left hip: Qualifiers: Encounter type: initial encounter Fracture type: closed Qualified Code(s): S72.002A - Fracture of unspecified part of neck of left femur, initial encounter for closed fracture (2) Fall: Qualifiers: Encounter type: initial encounter Qualified Code(s): W19.XXXA - Unspecified fall, initial encounter (3) DM2 (diabetes mellitus, type 2): Qualifiers: Diabetes mellitus prison insulin use: without prison use Diabetes mellitus complication status: without complication Qualified Code(s): E11.9 - Type 2 diabetes mellitus without complications (4) HLD (hyperlipidemia): Qualifiers: Hyperlipidemia type: unspecified Qualified Code(s): E78.5 - Hyperlipidemia, unspecified (5) HTN (hypertension): Qualifiers: Hypertension type: unspecified Qualified Code(s): I10 - Essential (primary) hypertension Plan Bedrest pending OR this am with Dr. Morales for IM boyd L hip Med mgmt/pain control per internal medicine NPO/IVF Start DVT chemoprophylaxis postop D/w Dr. Morales who is in agreement with this plan Plan Anesthesia Type: General Consent for Procedure(s) Verified and Reviewed: Yes Code Status: Attempt Resuscitation ASA Classification ASA classification: 3-Severe systemic disease Is this case an emergency?: No
[2025-08-03] MEDS ORDERED: HYDROmorphone 0.5 MG/0.5 ML SYRINGE IVP PRN (09:18)
[2025-08-03] MEDS ORDERED: METOCLOPRAMIDE 10 MG/2 ML VIAL IVP PRN (09:18)
[2025-08-03] MEDS ORDERED: ATROPINE ABBOJECT 1 MG/10 ML SYRINGE IVP PRN (09:18)
[2025-08-03] MEDS ORDERED: ONDANSETRON 4 MG/2 ML VIAL IVP PRN (09:18)
[2025-08-03] MEDS ORDERED: NALOXONE 0.4 MG/ML VIAL IVP PRN (09:18)
[2025-08-03] MEDS ORDERED: ePHEDrine 50 MG/ML VIAL IVP PRN (09:18)
[2025-08-03] MEDS ORDERED: MORPHINE 2 MG/ML CARPUJECT IVP PRN (09:18)
[2025-08-03] MEDS ORDERED: MIDAZOLAM 2 MG/2 ML VIAL ONE (09:24)
[2025-08-03] MEDS ORDERED: fentaNYL 100 MCG/2 ML VIAL ONE ×3 (09:24→11:48)
--- NOTE | 2025-08-03 09:52 | PROVIDER PROGRESS NOTE ---
Subjective Subjective Subjective: This morning, patient is still in a significant amount of pain. She is having some nausea. She is eager to get surgery completed. She is looking forward to working with physical therapy after. She is understanding that she may need SNF placement after surgery. Current Medications Current Medications Current Medications: Current Medications Generic Name Dose Route Start Last Admin Trade Name Freq PRN Reason Stop Dose Admin Acetaminophen 650 mg 08/02/25 15:24 Acetaminophen 325 Mg Tablet PO Q4HR PRN Pain 1 to 4, or Fever Amlodipine Besylate 5 mg 08/03/25 09:00 08/03/25 09:14 Amlodipine 5 Mg Tablet PO 5 mg DAILY ALISSA Administration Atorvastatin Calcium 20 mg 08/02/25 21:00 08/02/25 21:33 Atorvastatin 10 Mg Tablet PO 20 mg HS ALISSA Administration Atropine Sulfate 0.5 mg 08/03/25 09:18 Atropine Abboject 1 Mg/10 Ml Syringe IVP 08/04/25 09:18 Q5M PRN Bradycardia Baclofen 5 mg 08/02/25 17:00 08/02/25 21:33 Baclofen 10 Mg Tablet PO 5 mg TID PRN Administration Spasms Bupropion HCl 150 mg 08/03/25 09:00 08/03/25 09:14 Bupropion Xl 150 Mg Tablet PO 150 mg DAILY ALISSA Administration Calcium Carbonate/Glycine 500 mg 08/02/25 21:00 08/03/25 09:14 Calcium Carbonate Chew 500 Mg Tablet PO 500 mg BID ALISSA Administration Cholecalciferol 25 mcg 08/03/25 09:00 08/03/25 09:14 Cholecalciferol 25 Mcg Tablet PO 25 mcg DAILY ALISSA Administration Enoxaparin Sodium 40 mg 08/04/25 09:00 Enoxaparin 40 Mg/0.4 Ml Syringe SUBQ DAILY ALISSA Ephedrine Sulfate 10 mg 08/03/25 09:18 Ephedrine 50 Mg/Ml Vial IVP 08/04/25 09:18 Q5M PRN HYPOTENSION Fentanyl 25 - 50 mcg 08/03/25 09:18 Fentanyl 100 Mcg/2 Ml Vial IVP 08/04/25 09:18 Q5M PRN BREAKTHROUGH PAIN (2nd Choice) Hydromorphone HCl 1 mg 08/02/25 11:25 08/03/25 08:28 Hydromorphone 1 Mg/Ml Carpuject IVP 1 mg Q2H PRN Administration Analgesia Hydromorphone HCl 0.2 - 0.6 mg 08/03/25 09:18 Hydromorphone 0.5 Mg/0.5 Ml Syringe IVP 08/04/25 09:18 Q5M PRN PAIN (First Choice) Lactated Ringer's 1,000 mls @ 100 mls/hr 08/03/25 10:00 Lr IV 08/03/25 19:59 .Q10H [facility] Insulin Human Lispro 1 - 5 unit 08/02/25 17:00 08/03/25 08:27 Insulin Lispro 300 Unit/3 Ml Pen SUBQ Not Given 0800,1200,1700,2100 [facility] Protocol Losartan Potassium 100 mg 08/03/25 09:00 08/03/25 09:14 Losartan 50 Mg Tablet PO 100 mg DAILY ALISSA Administration Metoclopramide HCl 5 mg 08/02/25 17:04 08/03/25 09:23 Metoclopramide 10 Mg/2 Ml Vial IVP 5 mg Q6HR PRN Administration Nausea / Vomiting Metoclopramide HCl 10 mg 08/03/25 09:18 Metoclopramide 10 Mg/2 Ml Vial IVP Q6HR PRN N/V not relieved by Zofran Morphine Sulfate 2 - 4 mg 08/03/25 09:18 Morphine 2 Mg/Ml Carpuject IVP 08/04/25 09:18 Q5M PRN PAIN (3rd Choice) Naloxone HCl 0.1 mg 08/03/25 09:18 Naloxone 0.4 Mg/Ml Vial IVP 08/04/25 09:18 Q2M PRN RESP RATE <8 Nystatin 1 applic 08/03/25 09:00 08/03/25 09:14 Nystatin Powder 15 Gm TOP 1 applic BID ALISSA Administration Ondansetron HCl 4 mg 08/02/25 17:00 Ondansetron Odt 4 Mg Tablet TL Q4HR PRN Nausea / Vomiting Ondansetron HCl 4 mg 08/03/25 09:18 Ondansetron 4 Mg/2 Ml Vial IVP 08/04/25 09:18 ONCE PRN N/V (First Choice) Oxycodone HCl 5 mg 08/02/25 15:24 08/03/25 06:09 Oxycodone 5 Mg Tablet PO 5 mg Q4HR PRN Administration Pain 5 to 7 Sodium Chloride 10 ml 08/02/25 15:24 Sodium Chloride Flush 0.9% 10 Ml Syringe IVP PRN PRN NEEDED PER PROVIDER ORDERS Sodium Chloride 10 ml 08/02/25 17:00 08/03/25 08:28 Sodium Chloride Flush 0.9% 10 Ml Syringe IVP 10 ml 0100,0900,1700 ALISSA Administration Objective Vital Signs/Intake & Output Reviewed Vital Signs: Yes Vital Signs: Vital Signs x48h Temp Pulse Resp BP Pulse Ox 08/03/25 08:02 97.9 F 85 18 187/85 H 93 Intake & Output: Intake & Output 07/31/25 08/01/25 08/02/25 08/03/25 23:59 23:59 23:59 23:59 Intake Total 1340 / 1340 Output Total 200 / 200 1650 / 1650 Balance 1140 / 1140 -1650 / -1650 Weight (kg) 101.5 kg Objective Comments/Other: Constitutional normal general appearance, distress noted (moderate), abnormal body habitus (obese) and no limitations HENMT normocephalic, head/scalp atraumatic and hearing grossly normal bilaterally Eyes PERRL and EOMs intact bilaterally Neck/C-Spine visual inspection normal and trachea midline Chest inspection of chest normal Respiratory breath sounds equal bilaterally, normal respiratory effort, clear to auscultation bilaterally, no wheezes, no rales and no retractions Cardiovascular normal heart rate noted, regular rhythm noted, no gallop, no rub and murmur noted (systolic) Gastrointestinal abdomen normal to inspection, abdomen soft to palpation, nontender to palpation and normoactive bowel sounds Genitourinary no CVA tenderness and bladder normal to palpation Back/Pelvis spine normal to inspection Neurology no movement abnormality noted and no focal motor deficit noted Left lower extremity externally rotated, tenderness to even light palpation. Psychiatry mental status grossly normal, oriented x3, thought process normal, cooperative and affect normal Skin Some erythema noted under breasts and under abdominal pannus Lab Results 08/03/25 05:15 08/03/25 05:15 Other Labs: Lab Results x24hrs 08/03/25 08/03/25 08/02/25 Range/Units 08:20 05:15 21:02 WBC 10.4 (4.8-10.8) x10^3/uL RBC 4.15 L (4.20-5.40) 10^6/uL Hgb 12.4 (12.0-16.0) g/dL Hct 37.9 (37.0-47.0) % MCV 91.3 (81.0-99.0) fL MCH 29.9 (27.0-31.0) pg MCHC 32.7 (32.0-36.0) g/dL RDW 13.9 (12.0-15.0) % Plt Count 107 L (130-450) 10^3/uL MPV 11.3 H (7.9-10.8) fL Neut # (Auto) (1.5-6.6) 10^3/uL Lymph # (Auto) (1.5-3.5) 10^3/uL [place] # (Auto) (0.0-1.0) 10^3/uL Eos # (Auto) (0.0-0.7) 10^3/uL Baso # (Auto) (0.0-0.1) 10^3/uL Absolute Nucleated RBC x10^3/uL Nucleated RBC % /100WBC Sodium 140 (135-145) mmol/L Potassium 3.7 (3.5-4.5) mmol/L Chloride 106 (101-111) mmol/L Carbon Dioxide 26 (21-32) mmol/L Anion Gap 8.0 (6-13) BUN 15 (6-20) mg/dL Creatinine 0.7 (0.6-1.3) mg/dL Estimated GFR (MDRD) 83 L (>89) Glucose 112 H (74-104) mg/dL POC Whole Bld Glucose 125 184 (70-100) mg/dL Calcium 9.0 (8.5-10.3) mg/dL Magnesium 1.9 (1.7-2.3) mg/dL Total Bilirubin (0.2-1.0) mg/dL AST (10-42) IU/L ALT (10-60) IU/L Alkaline Phosphatase (42-121) IU/L Total Protein (6.4-8.9) g/dL Albumin (3.2-5.5) g/dL Globulin (2.1-4.2) g/dL Albumin/Globulin Ratio (1.0-2.2) 11/18/25 11/18/25 Range/Units 15:47 11:02 WBC 10.5 (4.8-10.8) x10^3/uL RBC 4.45 (4.20-5.40) 10^6/uL Hgb 12.9 (12.0-16.0) g/dL Hct 40.9 (37.0-47.0) % MCV 91.9 (81.0-99.0) fL MCH 29.0 (27.0-31.0) pg MCHC 31.5 L (32.0-36.0) g/dL RDW 13.9 (12.0-15.0) % Plt Count 128 L (130-450) 10^3/uL MPV 10.5 (7.9-10.8) fL Neut # (Auto) 8.3 H (1.5-6.6) 10^3/uL Lymph # (Auto) 1.3 L (1.5-3.5) 10^3/uL [place] # (Auto) 0.7 (0.0-1.0) 10^3/uL Eos # (Auto) 0.1 (0.0-0.7) 10^3/uL Baso # (Auto) 0.1 (0.0-0.1) 10^3/uL Absolute Nucleated RBC 0.00 x10^3/uL Nucleated RBC % 0.0 /100WBC Sodium 139 (135-145) mmol/L Potassium 4.0 (3.5-4.5) mmol/L Chloride 105 (101-111) mmol/L Carbon Dioxide 28 (21-32) mmol/L Anion Gap 6.0 (6-13) BUN 18 (6-20) mg/dL Creatinine 0.8 (0.6-1.3) mg/dL Estimated GFR (MDRD) 71 L (>89) Glucose 169 H (74-104) mg/dL POC Whole Bld Glucose 155 (70-100) mg/dL Calcium 9.0 (8.5-10.3) mg/dL Magnesium (1.7-2.3) mg/dL Total Bilirubin 0.8 (0.2-1.0) mg/dL AST 14 (10-42) IU/L ALT 17 (10-60) IU/L Alkaline Phosphatase 76 (42-121) IU/L Total Protein 6.5 (6.4-8.9) g/dL Albumin 3.9 (3.2-5.5) g/dL Globulin 2.6 (2.1-4.2) g/dL Albumin/Globulin Ratio 1.5 (1.0-2.2) Assessment/Plan Problem List (1) Fracture of left hip: Impression: Patient presented after a mechanical fall. Hip x-ray shows mildly displaced intertrochanteric fracture with extension to the proximal femoral diaphysis. Plan for OR today with orthopedic surgery. DVT prophylaxis held until post surgery in AM. Likely will continue with aspirin for prophylaxis. Continue Tylenol as needed for mild pain, oxycodone as needed for moderate pain, Dilaudid as needed for severe pain. Flexeril as needed as well. RCRI of 1 for history of vascular disease with previous TIA. 1.1% risk of major cardiac event. METS of 3-4. Patient is able to ambulate up a flight of stairs, but has difficulty due to underlying osteoarthritis. No active chest pain, CHF symptoms, etc. EKG ordered - normal sinus rhythm, no ischemic changes noted. Will consult PT after, patient will likely require SNF on discharge. Qualifiers: Encounter type: initial encounter Fracture type: closed Qualified Code(s): S72.002A - Fracture of unspecified part of neck of left femur, initial encounter for closed fracture (2) DM2 (diabetes mellitus, type 2): Impression: Patient takes metformin at home. Continue low-dose sliding scale while here. Carb controlled diet. Qualifiers: Diabetes mellitus complication status: without complication Diabetes mellitus blast furnace keeper insulin use: without blast furnace keeper use Qualified Code(s): E11.9 - Type 2 diabetes mellitus without complications (3) HLD (hyperlipidemia): Impression: Continue statin. Qualifiers: Hyperlipidemia type: unspecified Qualified Code(s): E78.5 - Hyperlipidemia, unspecified (4) HTN (hypertension): Impression: Continue losartan, amlodipine. Qualifiers: Hypertension type: unspecified Qualified Code(s): I10 - Essential (primary) hypertension
[2025-08-03] MEDS: LACTATED RINGERS 1,000 ML IV SCH (11:11)
[2025-08-03] MEDS: fentaNYL 100 MCG/2 ML VIAL IVP PRN (11:11)
--- NOTE | 2025-08-03 14:39 | ANESTHESIA POST OP EVALUATION ---
Anesthesia Post Eval Post Anesthesia Eval Vitals: Last Vital Signs Temp 36.7 C 08/03/25 13:54 Pulse 88 08/03/25 13:54 Resp 16 08/03/25 13:54 BP 135/82 H 08/03/25 13:54 Pulse Ox 97 08/03/25 13:54 O2 Flow Rate 2 08/03/25 13:54 CV Function Including HR & BP: Stable Pain Control: Satisfactory Nausea & Vomiting: Negative Mental Status: Baseline Respiratory Status: Airway Patent Hydration Status: Satisfactory Anesthesia Complications: None
[2025-08-03] MEDS ORDERED: PROCHLORPERAZINE 10 MG/2 ML VIAL IVP PRN (16:48)
--- NOTE | 2025-08-03 18:05 | PT Plan of Care ---
PT Plan of Care Physical Therapy Plan of Care: Diagnosis Diagnosis GLF with L hip intertroch fx Diagnosis s/p IM nailing Referring Provider Amalia Wong Patient Status Inpatient Chief Complaint Chief Complaint limited mobility Onset of Chief Complaint s/p fall Medical History (Updated 08/03/25 @ 08:45 by Amalia Wong PAHomero) DM2 (diabetes mellitus, type 2) HLD (hyperlipidemia) HTN (hypertension) TIA (transient ischemic attack) Surgical History (Updated 08/02/25 @ 11:05 by Chai Ferreira, RN) Hx of exploratory laparotomy Hx of hysterectomy Hx of tonsillectomy Balance/ Functional Results Sitting Balance Unable Standing Balance Unable Assessment Assessment Pt is a 69yo F referred for PT eval s/p GLF wit h L hip intertrochanteric fx, now POD0 s/p IM nailing. PMH includes DM, HTN, TIA, hysterectomy . Please see medical record for further details. Cleared for eval and WBAT per ortho. Pt met supine in bed, asking for help calling her friend. Pt is agreeable to participate with PT and ANESTHESIOLOGIST AND CRITICAL CARE present for portion of eval for bed mobility/brief change. Pt is able to answer orientation questions, A&Ox4 but tangential and distracted. Requires modAx2 for rolling during brief change. Overall presentation of reduced strength and mobility in all 4 limbs. Surgical dressing intact with no bleed through; pt reports severe pain during bed mobility. Unable to attend to task for safe transfer and out of bed mobility assessment at this time. Plan for further mobility assessment during next session. Pt may benefit from skilled PT in acute setting to progress functional mobility and gait training. When medically clear, PT rec dc to SNF as pt is unlikely to tolerate 9STE to access her home. Goals Improve bed mobility to: Modified Independent Improve supine to sit to: Minimal Assist Improve sit to stand to: Minimal Assist Improve pivot transfer ability Minimal Assist to: Improve sit to supine to: Minimal Assist Improve gait ability to: Min A Assistive Device Used: Front Wheeled Walker Improve Sitting Balance to: Good Improve Standing Balance to: Fair PT Plan of Care Frequency 1-2x/day Duration Until discharge Discharge Recommendations Discharge Location [facility] Equipment Recommended Front wheeled walker Transport Needs at Discharge B.L.S Other BLS d/t poor pain control, poor trunk control, and recent fx
[2025-08-04 06:34] LABS: HCT - HEMATOCRIT 31.4 % (37.0-47.0); HGB - HEMOGLOBIN 10.0 g/dL (12.0-16.0); MEAN PLATELET VOLUME 10.9 fL (7.9-10.8); PLT - PLATELET COUNT 80.0 10^3/uL (130-450); RED CELL DISTRIBUTION WIDTH 13.7 % (12.0-15.0)
[2025-08-04 06:58] LABS: BUN - BLOOD UREA NITROGEN 21.0 mg/dL (6-20); CARBON DIOXIDE - CO2 26.0 mmol/L (21-32); CREATININE 0.9 mg/dL (0.6-1.3); GFR - MDRD 62.0 (>89)
--- NOTE | 2025-08-04 07:45 | PROVIDER PROGRESS NOTE ---
Subjective Subjective Subjective: This morning, patient has improved pain. She still has a sharp pain with radiation down. She also has some pain in her ankle. She denies any nausea or vomiting at this time. She is tolerating P.O. intake. She denies any fevers, chills, cough, shortness of breath. Current Medications Current Medications Current Medications: Current Medications Generic Name Dose Route Start Last Admin Trade Name Freq PRN Reason Stop Dose Admin Acetaminophen 650 mg 08/02/25 15:24 Acetaminophen 325 Mg Tablet PO Q4HR PRN Pain 1 to 4, or Fever Amlodipine Besylate 5 mg 08/03/25 09:00 08/03/25 09:14 Amlodipine 5 Mg Tablet PO 5 mg DAILY ALISSA Administration Atorvastatin Calcium 20 mg 08/02/25 21:00 08/03/25 21:20 Atorvastatin 10 Mg Tablet PO 20 mg HS ALISSA Administration Baclofen 5 mg 08/02/25 17:00 08/02/25 21:33 Baclofen 10 Mg Tablet PO 5 mg TID PRN Administration Spasms Bupropion HCl 150 mg 08/03/25 09:00 08/03/25 09:14 Bupropion Xl 150 Mg Tablet PO 150 mg DAILY ALISSA Administration Calcium Carbonate/Glycine 500 mg 08/02/25 21:00 08/03/25 21:20 Calcium Carbonate Chew 500 Mg Tablet PO 500 mg BID ALISSA Administration Cholecalciferol 25 mcg 08/03/25 09:00 08/03/25 09:14 Cholecalciferol 25 Mcg Tablet PO 25 mcg DAILY ALISSA Administration Enoxaparin Sodium 40 mg 08/04/25 09:00 Enoxaparin 40 Mg/0.4 Ml Syringe SUBQ DAILY [facility] Hydromorphone HCl 1 mg 08/02/25 11:25 08/04/25 07:37 Hydromorphone 1 Mg/Ml Carpuject IVP 1 mg Q2H PRN Administration Severe Pain (Level 7-10) Insulin Human Lispro 1 - 5 unit 08/02/25 17:00 08/03/25 21:20 Insulin Lispro 300 Unit/3 Ml Pen SUBQ 2 unit 0800,1200,1700,2100 ALISSA Administration Protocol Losartan Potassium 100 mg 08/03/25 09:00 08/03/25 09:14 Losartan 50 Mg Tablet PO 100 mg DAILY ALISSA Administration Metoclopramide HCl 10 mg 08/03/25 09:18 Metoclopramide 10 Mg/2 Ml Vial IVP Q6HR PRN N/V not relieved by Zofran Nystatin 1 applic 08/03/25 09:00 08/03/25 21:23 Nystatin Powder 15 Gm TOP 1 applic BID ALISSA Administration Ondansetron HCl 4 mg 08/02/25 17:00 Ondansetron Odt 4 Mg Tablet TL Q4HR PRN Nausea / Vomiting Oxycodone HCl 5 mg 08/02/25 15:24 08/04/25 01:33 Oxycodone 5 Mg Tablet PO 5 mg Q4HR PRN Administration Pain 5 to 7 Prochlorperazine Edisylate 10 mg 08/03/25 16:48 Prochlorperazine 10 Mg/2 Ml Vial IVP Q6HR PRN Nausea / Vomiting Sodium Chloride 10 ml 08/02/25 15:24 Sodium Chloride Flush 0.9% 10 Ml Syringe IVP PRN PRN NEEDED PER PROVIDER ORDERS Sodium Chloride 10 ml 08/02/25 17:00 08/04/25 01:34 Sodium Chloride Flush 0.9% 10 Ml Syringe IVP 10 ml 0100,0900,1700 ALISSA Administration Objective Vital Signs/Intake & Output Reviewed Vital Signs: Yes Vital Signs: Vital Signs x48h Temp Pulse Resp BP Pulse Ox O2 Flow Rate 08/04/25 07:36 97.9 F 99 16 131/88 H 98 2 08/04/25 05:54 97.9 F 93 20 172/82 H 95 2 08/04/25 00:06 97.7 F 96 20 166/87 H 94 2 Intake & Output: Intake & Output 08/01/25 08/02/25 08/03/25 08/04/25 23:59 23:59 23:59 23:59 Intake Total 1340 / 1340 3060 / 3060 Output Total 200 / 200 2700 / 2700 200 / 200 Balance 1140 / 1140 360 / 360 -200 / -200 Weight (kg) 101.5 kg Objective Comments/Other: Constitutional normal general appearance, distress noted (moderate), abnormal body habitus (obese) and no limitations HENMT normocephalic, head/scalp atraumatic and hearing grossly normal bilaterally Eyes PERRL and EOMs intact bilaterally Neck/C-Spine visual inspection normal and trachea midline Chest inspection of chest normal Respiratory breath sounds equal bilaterally, normal respiratory effort, clear to auscultation bilaterally, no wheezes, no rales and no retractions Cardiovascular normal heart rate noted, regular rhythm noted, no gallop, no rub and murmur noted (systolic) Gastrointestinal abdomen normal to inspection, abdomen soft to palpation, nontender to palpation and normoactive bowel sounds Genitourinary no CVA tenderness and bladder normal to palpation Back/Pelvis spine normal to inspection Neurology no movement abnormality noted and no focal motor deficit noted Left lower extremity with some tenderness to touch diffusely. DP and PT intact. Surgical scar on left hip with minimal drainage. Psychiatry mental status grossly normal, oriented x3, thought process normal, cooperative and affect normal Skin Some erythema noted under breasts and under abdominal pannus Lab Results 08/04/25 06:19 08/04/25 06:19 Other Labs: Lab Results x24hrs 08/04/25 08/04/25 08/03/25 Range/Units 07:27 06:19 21:04 WBC 9.9 (4.8-10.8) x10^3/uL RBC 3.40 L (4.20-5.40) 10^6/uL Hgb 10.0 L (12.0-16.0) g/dL Hct 31.4 L (37.0-47.0) % MCV 92.4 (81.0-99.0) fL MCH 29.4 (27.0-31.0) pg MCHC 31.8 L (32.0-36.0) g/dL RDW 13.7 (12.0-15.0) % Plt Count 80 L (130-450) 10^3/uL MPV 10.9 H (7.9-10.8) fL Sodium 139 (135-145) mmol/L Potassium 3.9 (3.5-4.5) mmol/L Chloride 106 (101-111) mmol/L Carbon Dioxide 26 (21-32) mmol/L Anion Gap 7.0 (6-13) BUN 21 H (6-20) mg/dL Creatinine 0.9 (0.6-1.3) mg/dL Estimated GFR (MDRD) 62 L (>89) Glucose 123 H (74-104) mg/dL POC Whole Bld Glucose 125 190 (70-100) mg/dL Calcium 8.8 (8.5-10.3) mg/dL Magnesium 1.9 (1.7-2.3) mg/dL 08/03/25 08/03/25 Range/Units 11:44 08:20 WBC (4.8-10.8) x10^3/uL RBC (4.20-5.40) 10^6/uL Hgb (12.0-16.0) g/dL Hct (37.0-47.0) % MCV (81.0-99.0) fL MCH (27.0-31.0) pg MCHC (32.0-36.0) g/dL RDW (12.0-15.0) % Plt Count (130-450) 10^3/uL MPV (7.9-10.8) fL Sodium (135-145) mmol/L Potassium (3.5-4.5) mmol/L Chloride (101-111) mmol/L Carbon Dioxide (21-32) mmol/L Anion Gap (6-13) BUN (6-20) mg/dL Creatinine (0.6-1.3) mg/dL Estimated GFR (MDRD) (>89) Glucose (74-104) mg/dL POC Whole Bld Glucose 171 125 (70-100) mg/dL Calcium (8.5-10.3) mg/dL Magnesium (1.7-2.3) mg/dL Assessment/Plan Problem List (1) Fracture of left hip: Impression: Patient presented after a mechanical fall. Hip x-ray shows mildly displaced intertrochanteric fracture with extension to the proximal femoral diaphysis. Completed left hip pinning 08/03. DVT prophylaxis started today. Continue Tylenol as needed for mild pain, oxycodone as needed for moderate pain, Dilaudid as needed for severe pain. Flexeril as needed as well. PT consulted. Qualifiers: Encounter type: initial encounter Fracture type: closed Qualified Code(s): S72.002A - Fracture of unspecified part of neck of left femur, initial encounter for closed fracture (2) DM2 (diabetes mellitus, type 2): Impression: Patient takes metformin at home. Continue low-dose sliding scale while here. Carb controlled diet. Qualifiers: Diabetes mellitus complication status: without complication Diabetes mellitus halfway insulin use: without terminal press operator use Qualified Code(s): E11.9 - Type 2 diabetes mellitus without complications (3) HLD (hyperlipidemia): Impression: Continue statin. Qualifiers: Hyperlipidemia type: unspecified Qualified Code(s): E78.5 - Hyperlipidemia, unspecified (4) HTN (hypertension): Impression: Continue losartan, amlodipine. Qualifiers: Hypertension type: unspecified Qualified Code(s): I10 - Essential (primary) hypertension
--- NOTE | 2025-08-04 08:09 | ADVANCE CARE PLANNING NOTE ---
Advance Care Planning Planning Encounter Date: 08/05/25 Time: 13:24 Purpose: Fill out POLST, discuss overall goals of care. Parties in Attendance: Patient, patient's friend Chely. Decisional Capacity of the Patient: Fully decisional. Diagnosis for Encounter (1) Fracture of left hip: Qualifiers: Encounter type: initial encounter Fracture type: closed Qualified Code(s): S72.002A - Fracture of unspecified part of neck of left femur, initial encounter for closed fracture Summary: Patient presented after a mechanical fall. Hip x-ray showed mildly displaced intertrochanteric fracture with extension to the proximal femoral diaphysis. Completed left hip pinning 08/03. Continue DVT prophylaxis with aspirin 325 mg daily, to be continued for 30 days. Patient does have a noted thrombocytopenia. Continue DVT prophylaxis unless platelet count drops below 50,000, and then would hold. Continue Tylenol as needed for mild pain, oxycodone as needed for moderate pain. PT consulted, reccomend SNF. Patient is medically cleared, awaiting placement. Encounter Additional Discussion: We discussed her overall goals of care. She has opted for selective treatment, and would prefer not to be intubated, but may be okay with it if it was a short term trial. She would like CPR. We discussed how following CPR, patient's are intubated and it is a very aggressive and heroic measure. She is still insistent that she would like to have CPR if needed. POLST was completed together. Code Status: Attempt Resuscitation Time spent on advance care plannin
[2025-08-04] MEDS: ACETAMINOPHEN 325 MG TABLET PO PRN (09:20)
[2025-08-04] MEDS: ENOXAPARIN 40 MG/0.4 ML SYRINGE SUBQ SCH (09:21)
--- NOTE | 2025-08-04 11:01 | OPERATIVE REPORT ---
Operative Report General Admit Date: 08/02/25 Procedure Data: Operation Date: 08/03/25 09:30 Proposed Procedures p Hip Nailing(Left) - Heladio Morales DO Actual Procedures p Hip Nailing(Left) - Heladio Morales DO Pre-Op Diagnosis: LEFT INTERTROCHANTERIC HIP FRACTURE Anesthesia Type General Case Staff Anesthesia Provider: Lynn Mckeon Assisting Provider: Amalia Wong Rep: Isaac Luna (Davis and Nephew. Case Times Into Recovery: 08/03/25 11:11 Procedure Start: 08/03/25 10:11 Procedure End: 08/03/25 11:03 Time out: 08/03/25 10:11 Implants TRIGEN L-P SCREW 5MMX32.5MM TRIGEN LAG SCRW 100/95MM INTERTAN 10S [id number] 125D LT Pre-Op Diagnosis: Left intertrochanteric hip fracture Post Op Diagnosis: Left intertrochanteric hip fracture Procedure Note Estimated Blood Loss (ml): 150 Indications: Left hip intertrochanteric hip fracture Complications: None Other Other Information/Narrative: Intramedullary nail fixation of the hip is a complicated procedure that needs the assistance from the PA. LUIS Lind helped me with positioning and retracting so I can properly put in the prosthesis. Patient was taken to the operative suite. Patient was placed in the fracture table with the left hip exposed and the right leg up in the stirrup. We did get physician guided fluoroscopy films before the surgery prepping to make sure that we were in anatomic alignment and we obtained excellent alignment. At that time the left hip was prepped and draped in the usual sterile fashion we made an incision from the tip of the troches proximally about 4 to 5 cm the tensor fascia jesse was incised and we could palpate the greater troches at that point and we took a guidewire and put it in the tip of the troches all the way down to the lesser troches and then drilled our outer hole. We then took a 10 mm boyd put it down into the leg and we confirmed good alignment on physician guided fluoroscopy in both the AP and lateral positions. We did go ahead insert the pin up into the femoral head and we measured it to be 95 mm.Once we confirmed the placement on AP and lateral positions we drilled our guide for the compression screw and the lag screw. The lag screw was inserted first followed by the compression screw. Once that was done we turned our direction distally we made a small incision and put the guide down to the bone we drilled the hole and inserted a 30 2.5 millimeter screw. At that time we took final x-rays and the fracture was in near anatomic alignment and the boyd was in excellent position. At that time the deep tissue was closed with 0 Vicryl the subcu with 2-0 Vicryl the skin was closed with virginie a sterile dressing was applied and the patient was awakened and transferred stable to recovery room
--- NOTE | 2025-08-04 11:38 | XRAY Report ---
PROCEDURE: FL OR C-Arm Procedure INDICATIONS: LEFT HIP NAILING TECHNIQUE: Intraoperative fluoroscopic guidance was provided and low-resolution fluoroscopic spot films were obtained. COMPARISON: None. FINDINGS: Low-resolution intraoperative spot films show placement of femoral nail and associated femoral neck screws IMPRESSION: Fluoroscopic guidance. Reviewed by: Ritchie Herring MD on 08/04/2025 10:35 AM [facility] Approved by: Ritchie Herring MD on 08/04/2025 10:35 AM [facility] Station ID: [id number]
[2025-08-04] MEDS: LOSARTAN 50 MG TABLET PO SCH (21:57)
[2025-08-05 06:43] LABS: HCT - HEMATOCRIT 29.9 % (37.0-47.0); HGB - HEMOGLOBIN 9.8 g/dL (12.0-16.0); MEAN PLATELET VOLUME 11.9 fL (7.9-10.8); PLT - PLATELET COUNT 86.0 10^3/uL (130-450); RED CELL DISTRIBUTION WIDTH 13.8 % (12.0-15.0)
--- NOTE | 2025-08-05 06:53 | POST OP PROGRESS NOTE ---
Subjective General Admit Date: 08/02/25 Other Other Information/Narrative: Pt feeling better. States she has been improving. Ortho Surgical Progress Note Problem List Problem List: 69 yo f s/p fall Impression: POD 2 IMN L IT fx 08/03/25: IMN L IT fx (Andrew) Plan: May DC from Ortho standpoint when medically optimized Med mgmt per internal medicine OOB to chair BID at minimum continue DVT chemoprophylaxis at DC; EC ASA 325 mg BID unless pt is on home anticoagulation PT/OT: WBAT; no restrictions Change dressing at DC to silvadine dressing & reinforce as necessary f/u office 10 days No swimming/soaking; may shower Ortho will sign off; please call with questions D/w Dr. Morales Discharge Instructions: as above Review of Systems Status of ROS: 10 or more systems reviewed and unremarkable except as noted in history and below Exam Exam Vital Signs: Vital Signs x48h Temp Pulse Resp BP Pulse Ox 08/05/25 02:00 36.5 C 94 18 163/75 H 95 General appearance: alert, awake, oriented x 3, well-nourished, elevated BMI, painful distress Fracture: L hip IT fx Head/Eyes: atraumatic Extremities/Vascular: pedal pulses intact, radial pulses intact Musculoskeletal: moves all extremities; LLE weakness d/t injury Neuro/CITY COMPTROLLER: alert, follows commands; NVI Skin: warm, dry, without erythema, warmth; ecchymosis LLE; dressing CDI Psychiatry: normal affect
[2025-08-05 06:54] LABS: BUN - BLOOD UREA NITROGEN 23.0 mg/dL (6-20); CARBON DIOXIDE - CO2 28.0 mmol/L (21-32); CREATININE 0.9 mg/dL (0.6-1.3); GFR - MDRD 62.0 (>89)
--- NOTE | 2025-08-05 10:24 | PROVIDER PROGRESS NOTE ---
Subjective Subjective Subjective: This morning, patient has improved pain in her left leg. She does state that she feels pretty weak. Yesterday, with physical therapy, she was only able to sit on the side of bed. She denies any nausea or vomiting at this time. She is tolerating P.O. intake. She denies any fevers, chills, cough, shortness of breath. Current Medications Current Medications Current Medications: Current Medications Generic Name Dose Route Start Last Admin Trade Name Freq PRN Reason Stop Dose Admin Acetaminophen 650 mg 08/02/25 15:24 08/05/25 09:42 Acetaminophen 325 Mg Tablet PO 650 mg Q4HR PRN Administration Pain 1 to 4, or Fever Amlodipine Besylate 5 mg 08/03/25 09:00 08/05/25 09:43 Amlodipine 5 Mg Tablet PO 5 mg DAILY ALISSA Administration Aspirin 325 mg 08/06/25 09:00 Aspirin Ec 325 Mg Tablet PO DAILY ALISSA Atorvastatin Calcium 20 mg 08/02/25 21:00 08/04/25 21:50 Atorvastatin 10 Mg Tablet PO 20 mg HS ALISSA Administration Baclofen 5 mg 08/02/25 17:00 08/02/25 21:33 Baclofen 10 Mg Tablet PO 5 mg TID PRN Administration Spasms Bupropion HCl 150 mg 08/03/25 09:00 08/04/25 09:20 Bupropion Xl 150 Mg Tablet PO 150 mg DAILY ALISSA Administration Calcium Carbonate/Glycine 500 mg 08/02/25 21:00 08/05/25 09:42 Calcium Carbonate Chew 500 Mg Tablet PO 500 mg BID ALISSA Administration Cholecalciferol 25 mcg 08/03/25 09:00 08/05/25 09:42 Cholecalciferol 25 Mcg Tablet PO 25 mcg DAILY ALISSA Administration Enoxaparin Sodium 40 mg 08/04/25 09:00 08/04/25 09:21 Enoxaparin 40 Mg/0.4 Ml Syringe SUBQ 40 mg DAILY ALISSA Administration Insulin Human Lispro 1 - 5 unit 08/02/25 17:00 08/05/25 08:07 Insulin Lispro 300 Unit/3 Ml Pen SUBQ 2 unit 0800,1200,1700,2100 ALISSA Administration Protocol Losartan Potassium 100 mg 08/04/25 09:33 08/04/25 21:57 Losartan 50 Mg Tablet PO 100 mg 2100 ALISSA Administration Metoclopramide HCl 10 mg 08/03/25 09:18 Metoclopramide 10 Mg/2 Ml Vial IVP Q6HR PRN N/V not relieved by Zofran Nystatin 1 applic 08/03/25 09:00 08/05/25 09:43 Nystatin Powder 15 Gm TOP 1 applic BID ALISSA Administration Ondansetron HCl 4 mg 08/02/25 17:00 Ondansetron Odt 4 Mg Tablet TL Q4HR PRN Nausea / Vomiting Oxycodone HCl 5 mg 08/02/25 15:24 08/05/25 02:00 Oxycodone 5 Mg Tablet PO 5 mg Q4HR PRN Administration Pain 5 to 7 Polyethylene Glycol 17 gm 08/04/25 11:00 08/05/25 09:43 Polyethylene Glycol 3350 17 Gm Packet PO Not Given DAILY ALISSA Prochlorperazine Edisylate 10 mg 08/03/25 16:48 Prochlorperazine 10 Mg/2 Ml Vial IVP Q6HR PRN Nausea / Vomiting Sodium Chloride 10 ml 08/02/25 15:24 Sodium Chloride Flush 0.9% 10 Ml Syringe IVP PRN PRN NEEDED PER PROVIDER ORDERS Sodium Chloride 10 ml 08/02/25 17:00 08/05/25 09:43 Sodium Chloride Flush 0.9% 10 Ml Syringe IVP 10 ml 0100,0900,1700 ALISSA Administration Objective Vital Signs/Intake & Output Reviewed Vital Signs: Yes Vital Signs: Vital Signs x48h Temp Pulse Resp BP Pulse Ox 08/05/25 09:47 87 138/73 H 08/05/25 07:35 98.1 F 94 20 155/82 H 96 Intake & Output: Intake & Output 08/02/25 08/03/25 08/04/25 08/05/25 23:59 23:59 23:59 23:59 Intake Total 1340 / 1340 3060 / 3060 560 / 560 120 / 120 Output Total 200 / 200 2700 / 2700 600 / 600 300 / 300 Balance 1140 / 1140 360 / 360 -40 / -40 -180 / -180 Weight (kg) 101.5 kg Objective Comments/Other: Constitutional normal general appearance, distress noted (moderate), abnormal body habitus (obese) and no limitations HENMT normocephalic, head/scalp atraumatic and hearing grossly normal bilaterally. some excoriations noted on face, left side and forehead, healing appropriately without associtated erythema. Eyes PERRL and EOMs intact bilaterally Neck/C-Spine visual inspection normal and trachea midline Chest inspection of chest normal Respiratory breath sounds equal bilaterally, normal respiratory effort, clear to auscultation bilaterally, no wheezes, no rales and no retractions Cardiovascular normal heart rate noted, regular rhythm noted, no gallop, no rub and murmur noted (systolic) Gastrointestinal abdomen normal to inspection, abdomen soft to palpation, nontender to palpation and normoactive bowel sounds Genitourinary no CVA tenderness and bladder normal to palpation Back/Pelvis spine normal to inspection Neurology no movement abnormality noted and no focal motor deficit noted Left lower extremity with some tenderness to touch diffusely. DP and PT intact. Sensation intact. Surgical scar on left hip with minimal drainage. Psychiatry mental status grossly normal, oriented x3, thought process normal, cooperative and affect normal Skin Some erythema noted under breasts and under abdominal pannus, improving. Multiple ecchymoses noted on arms, in various stages of healing. Lab Results 08/05/25 06:24 08/05/25 06:24 Other Labs: Lab Results x24hrs 08/05/25 08/05/25 08/05/25 Range/Units 07:29 06:24 02:17 WBC 9.4 (4.8-10.8) x10^3/uL RBC 3.24 L (4.20-5.40) 10^6/uL Hgb 9.8 L (12.0-16.0) g/dL Hct 29.9 L (37.0-47.0) % MCV 92.3 (81.0-99.0) fL MCH 30.2 (27.0-31.0) pg MCHC 32.8 (32.0-36.0) g/dL RDW 13.8 (12.0-15.0) % Plt Count 86 L (130-450) 10^3/uL MPV 11.9 H (7.9-10.8) fL Sodium 137 (135-145) mmol/L Potassium 4.0 (3.5-4.5) mmol/L Chloride 104 (101-111) mmol/L Carbon Dioxide 28 (21-32) mmol/L Anion Gap 5.0 L (6-13) BUN 23 H (6-20) mg/dL Creatinine 0.9 (0.6-1.3) mg/dL Estimated GFR (MDRD) 62 L (>89) Glucose 186 H (74-104) mg/dL POC Whole Bld Glucose 217 186 (70-100) mg/dL Calcium 8.8 (8.5-10.3) mg/dL Magnesium 2.0 (1.7-2.3) mg/dL 08/04/25 08/04/25 08/04/25 Range/Units 20:47 16:53 11:06 WBC (4.8-10.8) x10^3/uL RBC (4.20-5.40) 10^6/uL Hgb (12.0-16.0) g/dL Hct (37.0-47.0) % MCV (81.0-99.0) fL MCH (27.0-31.0) pg MCHC (32.0-36.0) g/dL RDW (12.0-15.0) % Plt Count (130-450) 10^3/uL MPV (7.9-10.8) fL Sodium (135-145) mmol/L Potassium (3.5-4.5) mmol/L Chloride (101-111) mmol/L Carbon Dioxide (21-32) mmol/L Anion Gap (6-13) BUN (6-20) mg/dL Creatinine (0.6-1.3) mg/dL Estimated GFR (MDRD) (>89) Glucose (74-104) mg/dL POC Whole Bld Glucose 254 227 224 (70-100) mg/dL Calcium (8.5-10.3) mg/dL Magnesium (1.7-2.3) mg/dL Assessment/Plan Problem List (1) Fracture of left hip: Impression: Patient presented after a mechanical fall. Hip x-ray showed mildly displaced intertrochanteric fracture with extension to the proximal femoral diaphysis. Completed left hip pinning 08/03. Continue DVT prophylaxis with aspirin 325 mg daily, to be continued for 30 days. Patient does have a noted thrombocytopenia. Continue DVT prophylaxis unless platelet count drops below 50,000, and then would hold. Continue Tylenol as needed for mild pain, oxycodone as needed for moderate pain. Dilaudid stopped. PT consulted, reccomend SNF. Patient is medically cleared, awaiting placement. Qualifiers: Encounter type: initial encounter Fracture type: closed Qualified Code(s): S72.002A - Fracture of unspecified part of neck of left femur, initial encounter for closed fracture (2) DM2 (diabetes mellitus, type 2): Impression: Patient takes metformin at home. Continue low-dose sliding scale while here. Carb controlled diet. Sugars have ranged from 125-250 while here. She has required about 10 units of insulin lispro with the low-dose sliding scale throughout the day. Qualifiers: Diabetes mellitus complication status: without complication Diabetes mellitus deli/bakery associate insulin use: without deli/bakery associate use Qualified Code(s): E11.9 - Type 2 diabetes mellitus without complications (3) Acute blood loss anemia: (4) Thrombocytopenia: Impression: The following plan is for the above two assessments: Patient presented with a hemoglobin of 12.4. This morning, it is 9.8. Her platelets have been low since admission, at 128. This morning, they are 86. Surgical site does not show any signs of major bleeding, there is minimal drainage. Likely reactive after recent orthopedic surgery. Continue to monitor. As stated above, will continue DVT prophylaxis with aspirin 325 mg daily. If platelets drop below 50,000, other signs of active bleeding, will hold. (5) HLD (hyperlipidemia): Impression: Continue statin. Qualifiers: Hyperlipidemia type: unspecified Qualified Code(s): E78.5 - Hyperlipidemia, unspecified (6) HTN (hypertension): Impression: Continue losartan, amlodipine. Qualifiers: Hypertension type: unspecified Qualified Code(s): I10 - Essential (primary) hypertension (7) Depression: Impression: Continue buproprion. Qualifiers: Depression Type: unspecified Qualified Code(s): F32.A - Depression, unspecified
[2025-08-05] MEDS: oxyCODONE 5 MG TABLET PO PRN (12:49)
[2025-08-05] MEDS: INSULIN LISPRO 300 UNIT/3 ML PEN SUBQ SCH (18:04)
[2025-08-06 06:00] LABS: HCT - HEMATOCRIT 30.8 % (37.0-47.0); HGB - HEMOGLOBIN 9.7 g/dL (12.0-16.0); MEAN PLATELET VOLUME 11.6 fL (7.9-10.8); PLT - PLATELET COUNT 88.0 10^3/uL (130-450); RED CELL DISTRIBUTION WIDTH 13.8 % (12.0-15.0)
[2025-08-06 06:11] LABS: BUN - BLOOD UREA NITROGEN 18.0 mg/dL (6-20); CARBON DIOXIDE - CO2 28.0 mmol/L (21-32); CREATININE 0.8 mg/dL (0.6-1.3); GFR - MDRD 71.0 (>89)
[2025-08-06] MEDS: ASPIRIN EC 325 MG TABLET PO SCH (08:08)
--- NOTE | 2025-08-06 08:47 | PROVIDER PROGRESS NOTE ---
Subjective Prog Note Date Prog Note Date: 08/06/25 Prog Note Time: 08:45 Subjective Pt reports feeling: No change Subjective: The patient begins the encounter by apologizing. She states that every once a while a leg spasm hurts so much that she has to yell out loud. She did that a couple of times during the exam. Other than leg pain which causes her to feel like she has to "control my breathing" she denies any chest pain, palpitations, shortness of breath. She is frustrated as she we discussed disposition. She has been unable to register for Medicare and she thinks it has to do with her last name. It has to do with an ex- and filing of divorce papers. She currently has a son living with her. He does all of the household "stuff" but he does not have to take care of her. She is usually independent with ADLs, cleaning house, etc. Current Medications Current Medications Current Medications: Current Medications Generic Name Dose Route Start Last Admin Trade Name Freq PRN Reason Stop Dose Admin Acetaminophen 650 mg 08/02/25 15:24 08/06/25 06:08 Acetaminophen 325 Mg Tablet PO 650 mg Q4HR PRN Administration Pain 1 to 4, or Fever Amlodipine Besylate 5 mg 08/03/25 09:00 08/06/25 08:09 Amlodipine 5 Mg Tablet PO 5 mg DAILY ALISSA Administration Aspirin 325 mg 08/06/25 09:00 08/06/25 08:08 Aspirin Ec 325 Mg Tablet PO 325 mg DAILY ALISSA Administration Atorvastatin Calcium 20 mg 08/02/25 21:00 08/05/25 20:06 Atorvastatin 10 Mg Tablet PO 20 mg HS ALISSA Administration Baclofen 5 mg 08/02/25 17:00 08/02/25 21:33 Baclofen 10 Mg Tablet PO 5 mg TID PRN Administration Spasms Bupropion HCl 150 mg 08/03/25 09:00 08/06/25 08:09 Bupropion Xl 150 Mg Tablet PO 150 mg DAILY ALISSA Administration Calcium Carbonate/Glycine 500 mg 08/02/25 21:00 08/06/25 08:09 Calcium Carbonate Chew 500 Mg Tablet PO 500 mg BID ALISSA Administration Cholecalciferol 25 mcg 08/03/25 09:00 08/06/25 08:09 Cholecalciferol 25 Mcg Tablet PO 25 mcg DAILY ALISSA Administration Insulin Human Lispro 1 - 9 unit 08/05/25 21:00 08/06/25 08:20 Insulin Lispro 300 Unit/3 Ml Pen SUBQ 3 unit 0800,1200,1700,2100 ALISSA Administration Protocol Losartan Potassium 100 mg 08/04/25 09:33 08/05/25 20:06 Losartan 50 Mg Tablet PO 100 mg 2100 ALISSA Administration Metoclopramide HCl 10 mg 08/03/25 09:18 Metoclopramide 10 Mg/2 Ml Vial IVP Q6HR PRN N/V not relieved by Zofran Nystatin 1 applic 08/03/25 09:00 08/06/25 08:11 Nystatin Powder 15 Gm TOP 1 applic BID ALISSA Administration Ondansetron HCl 4 mg 08/02/25 17:00 Ondansetron Odt 4 Mg Tablet TL Q4HR PRN Nausea / Vomiting Oxycodone HCl 5 mg 08/05/25 11:03 08/06/25 08:09 Oxycodone 5 Mg Tablet PO 5 mg Q6HR PRN Administration Pain 5 to 7 Polyethylene Glycol 17 gm 08/04/25 11:00 08/06/25 08:11 Polyethylene Glycol 3350 17 Gm Packet PO Not Given DAILY ALISSA Prochlorperazine Edisylate 10 mg 08/03/25 16:48 Prochlorperazine 10 Mg/2 Ml Vial IVP Q6HR PRN Nausea / Vomiting Sodium Chloride 10 ml 08/02/25 15:24 Sodium Chloride Flush 0.9% 10 Ml Syringe IVP PRN PRN NEEDED PER PROVIDER ORDERS Sodium Chloride 10 ml 08/02/25 17:00 08/06/25 08:10 Sodium Chloride Flush 0.9% 10 Ml Syringe IVP 10 ml 0100,0900,1700 ALISSA Administration Objective Vital Signs/Intake & Output Reviewed Vital Signs: Yes Intake & Output: Intake & Output 08/03/25 08/04/25 08/05/25 08/06/25 23:59 23:59 23:59 23:59 Intake Total 3060 / 3060 560 / 560 780 / 780 Output Total 2700 / 2700 600 / 600 900 / 900 900 / 900 Balance 360 / 360 -40 / -40 -120 / -120 -900 / -900 Objective General Appearance: positive Alert, Moderate distress (At times when she yells out.) and Other (Well-nourished well-developed female with a spastic type speech pattern that she says happens because of the pain. She appears to almost have a dystonic spasm.) Eyes Bilateral: positive PERRL and EOMI ENT: positive ENT inspection nml Neck: positive Thyroid nml and No JVD; negative Stiff neck Respiratory: positive Chest non-tender, No respiratory distress and Breath sounds nml; negative Wheezes, Rales or Rhonchi Cardiovascular: positive Regular rate & rhythm and Systolic murmur Abdomen: positive Non-tender, No organomegaly, Nml bowel sounds and No distention; negative Tenderness or Guarding Skin: positive Color nml, Warm, Dry and Embolic lesions (Splotchy irregular hyperpigmentation of hemosiderin deposits from chronic venous stasis over her lower legs) Extremities: positive Full ROM and Other (Left hip wound bandaged. I removed some of it so I can look under and no serosanguineous drainage. No redness or heat. And I recovered the bandage. No clubbing or cyanosis. No pedal edema and Homans negative) Neurologic/Psychiatric: positive Oriented x3, CN's nml (2-12) and Motor nml Lab Results 08/06/25 05:49 08/06/25 05:49 Other Labs: Lab Results x24hrs 08/06/25 08/06/25 08/05/25 Range/Units 08:03 05:49 20:10 WBC 8.9 (4.8-10.8) x10^3/uL RBC 3.34 L (4.20-5.40) 10^6/uL Hgb 9.7 L (12.0-16.0) g/dL Hct 30.8 L (37.0-47.0) % MCV 92.2 (81.0-99.0) fL MCH 29.0 (27.0-31.0) pg MCHC 31.5 L (32.0-36.0) g/dL RDW 13.8 (12.0-15.0) % Plt Count 88 L (130-450) 10^3/uL MPV 11.6 H (7.9-10.8) fL Sodium 137 (135-145) mmol/L Potassium 4.0 (3.5-4.5) mmol/L Chloride 104 (101-111) mmol/L Carbon Dioxide 28 (21-32) mmol/L Anion Gap 5.0 L (6-13) BUN 18 (6-20) mg/dL Creatinine 0.8 (0.6-1.3) mg/dL Estimated GFR (MDRD) 71 L (>89) Glucose 165 H (74-104) mg/dL POC Whole Bld Glucose 189 340 (70-100) mg/dL Calcium 8.7 (8.5-10.3) mg/dL Magnesium 2.0 (1.7-2.3) mg/dL 08/05/25 08/05/25 Range/Units 16:35 11:30 WBC (4.8-10.8) x10^3/uL RBC (4.20-5.40) 10^6/uL Hgb (12.0-16.0) g/dL Hct (37.0-47.0) % MCV (81.0-99.0) fL MCH (27.0-31.0) pg MCHC (32.0-36.0) g/dL RDW (12.0-15.0) % Plt Count (130-450) 10^3/uL MPV (7.9-10.8) fL Sodium (135-145) mmol/L Potassium (3.5-4.5) mmol/L Chloride (101-111) mmol/L Carbon Dioxide (21-32) mmol/L Anion Gap (6-13) BUN (6-20) mg/dL Creatinine (0.6-1.3) mg/dL Estimated GFR (MDRD) (>89) Glucose (74-104) mg/dL POC Whole Bld Glucose 218 219 (70-100) mg/dL Calcium (8.5-10.3) mg/dL Magnesium (1.7-2.3) mg/dL Assessment/Plan Problem List (1) Fracture of left hip: Impression: Patient presented after a mechanical fall 08/02/25.. Hip x-ray showed mildly displaced intertrochanteric fracture with extension to the proximal femoral diaphysis. Completed left hip pinning 08/03. POD #3 She is getting DVT prophylaxis with aspirin 325 mg daily, to be continued for 30 days. Patient does have a noted thrombocytopenia. Continue DVT prophylaxis unless platelet count drops below 50,000, and then would hold. Continue Tylenol as needed for mild pain, oxycodone as needed for moderate pain. Dilaudid stopped. PT consulted, reccomend SNF. Patient is medically cleared 08/05/25, awaiting placement. This may be difficult to achieve since she does not have Medicare or Medicaid. Qualifiers: Encounter type: initial encounter Fracture type: closed Qualified Code(s): S72.002A - Fracture of unspecified part of neck of left femur, initial encounter for closed fracture (2) DM2 (diabetes mellitus, type 2): Impression: Patient takes metformin at home. Continue low-dose sliding scale while here. Carb controlled diet. [id number] glucose yesterday was 217, 219, 218 and 340. This morning she is 189. She has required about 10 units of insulin lispro with the low-dose sliding scale throughout the day. I will add 10 units of Lantus at night. Qualifiers: Diabetes mellitus group home insulin use: without long lines operator use Diabetes mellitus complication status: without complication Qualified Code(s): E11.9 - Type 2 diabetes mellitus without complications (3) Acute blood loss anemia: Impression: As below in problem #4 (4) Thrombocytopenia: Impression: The following plan is for the above two assessments: Patient presented with a hemoglobin of 12.4. This morning, it is 9.7 (she was 9.8 yesterday). Her platelets have been low since admission, at 128. This morning, they are 88 (86 yesterday). Surgical site does not show any signs of major bleeding, there is minimal drainage. Likely reactive after recent orthopedic surgery. Continue to monitor. As stated above, will continue DVT prophylaxis with aspirin 325 mg daily. If platelets drop below 50,000, other signs of active bleeding, will hold. (5) HLD (hyperlipidemia): Impression: Continue statin. Qualifiers: Hyperlipidemia type: unspecified Qualified Code(s): E78.5 - Hyperlipidemia, unspecified (6) HTN (hypertension): Impression: Blood pressure stay was in the 130s to 150s. This morning vital signs have not been recorded yet. Goal would be to be 130/70 but that can be achieved in the outpatient setting. Continue losartan, amlodipine. Qualifiers: Hypertension type: unspecified Qualified Code(s): I10 - Essential (primary) hypertension (7) Depression: Impression: Continue buproprion. Qualifiers: Depression Type: unspecified Qualified Code(s): F32.A - Depression, unspecified
[2025-08-07] MEDS: SENNA 8.6 MG TABLET PO SCH (08:00)
[2025-08-07] MEDS: INSULIN LISPRO 300 UNIT/3 ML PEN SUBQ SCH ×2 (08:01→17:00)
--- NOTE | 2025-08-07 08:46 | PROVIDER PROGRESS NOTE ---
Subjective Prog Note Date Prog Note Date: 08/07/25 Prog Note Time: 08:44 Subjective Pt reports feeling: No change Subjective: Still cries out with pain. She was asleep when I walked in and wakens easily. Her pain management is oxycodone as needed. Last dose was midnight last night. Yesterday she had 2 doses. She prefers Tylenol and is asking for Tylenol now. Baclofen is 5 mg 3 times daily as needed. Last dose was at midnight last night. She is using that sparingly as well. She denies chest pain, palpitations, shortness of breath. Current Medications Current Medications Current Medications: Current Medications Generic Name Dose Route Start Last Admin Trade Name Freq PRN Reason Stop Dose Admin Acetaminophen 650 mg 08/02/25 15:24 08/07/25 04:55 Acetaminophen 325 Mg Tablet PO 650 mg Q4HR PRN Administration Pain 1 to 4, or Fever Amlodipine Besylate 5 mg 08/03/25 09:00 08/07/25 08:00 Amlodipine 5 Mg Tablet PO 5 mg DAILY ALISSA Administration Aspirin 325 mg 08/06/25 09:00 08/07/25 08:00 Aspirin Ec 325 Mg Tablet PO 325 mg DAILY ALISSA Administration Atorvastatin Calcium 20 mg 08/02/25 21:00 08/06/25 21:28 Atorvastatin 10 Mg Tablet PO 20 mg HS ALISSA Administration Baclofen 5 mg 08/02/25 17:00 08/06/25 23:45 Baclofen 10 Mg Tablet PO 5 mg TID PRN Administration Spasms Bupropion HCl 150 mg 08/03/25 09:00 08/07/25 08:01 Bupropion Xl 150 Mg Tablet PO 150 mg DAILY ALISSA Administration Calcium Carbonate/Glycine 500 mg 08/02/25 21:00 08/07/25 08:02 Calcium Carbonate Chew 500 Mg Tablet PO 500 mg BID ALISSA Administration Cholecalciferol 25 mcg 08/03/25 09:00 08/07/25 08:00 Cholecalciferol 25 Mcg Tablet PO 25 mcg DAILY ALISSA Administration Insulin Human Lispro 2 - 10 unit 08/07/25 08:00 08/07/25 08:01 Insulin Lispro 300 Unit/3 Ml Pen SUBQ 2 unit 0800,1200,1700,2100 ALISSA Administration Protocol Losartan Potassium 100 mg 08/04/25 09:33 08/06/25 21:32 Losartan 50 Mg Tablet PO 100 mg 2100 ALISSA Administration Metoclopramide HCl 10 mg 08/03/25 09:18 Metoclopramide 10 Mg/2 Ml Vial IVP Q6HR PRN N/V not relieved by Zofran Nystatin 1 applic 08/03/25 09:00 08/07/25 08:01 Nystatin Powder 15 Gm TOP 1 applic BID ALISSA Administration Ondansetron HCl 4 mg 08/02/25 17:00 Ondansetron Odt 4 Mg Tablet TL Q4HR PRN Nausea / Vomiting Oxycodone HCl 5 mg 08/05/25 11:03 08/07/25 00:07 Oxycodone 5 Mg Tablet PO 5 mg Q6HR PRN Administration Pain 5 to 7 Polyethylene Glycol 17 gm 08/04/25 11:00 08/07/25 07:59 Polyethylene Glycol 3350 17 Gm Packet PO 17 gm DAILY ALISSA Administration Prochlorperazine Edisylate 10 mg 08/03/25 16:48 Prochlorperazine 10 Mg/2 Ml Vial IVP Q6HR PRN Nausea / Vomiting Senna 8.6 - 17.2 mg 08/07/25 08:00 08/07/25 08:00 Senna 8.6 Mg Tablet PO 17.2 mg DAILY ALISSA Administration Sodium Chloride 10 ml 08/02/25 15:24 Sodium Chloride Flush 0.9% 10 Ml Syringe IVP PRN PRN NEEDED PER PROVIDER ORDERS Sodium Chloride 10 ml 08/02/25 17:00 08/07/25 08:01 Sodium Chloride Flush 0.9% 10 Ml Syringe IVP 10 ml 0100,0900,1700 ALISSA Administration Objective Vital Signs/Intake & Output Reviewed Vital Signs: Yes Vital Signs: 138/76. Pulse 80. Respirations 16. Temperature 36.6.96% saturation on room air Intake & Output: Intake & Output 08/04/25 08/05/25 08/06/25 08/07/25 23:59 23:59 23:59 23:59 Intake Total 560 / 560 780 / 780 1040 / 1040 300 / 300 Output Total 600 / 600 900 / 900 1350 / 1350 1025 / 1025 Balance -40 / -40 -120 / -120 -310 / -310 -725 / -725 Objective General Appearance: positive Alert, Mild distress (From hip pain. She coughed and caused involuntary movement of her lower extremities and she cried out with the pain) and Other (Well-nourished well-developed female at 5 foot 9 inches tall, 101.5 kg) Eyes Bilateral: positive PERRL and EOMI ENT: positive No signs of dehydration Neck: positive No JVD; negative Stiff neck Respiratory: positive Chest non-tender, No respiratory distress and Breath sounds nml Cardiovascular: positive Regular rate & rhythm and Systolic murmur (Systolic ejection murmur loudest at the right upper sternal border and does radiate to the carotids. Compatible with aortic stenosis.) Abdomen: positive Non-tender, No organomegaly, Nml bowel sounds and No distention; negative Tenderness Skin: positive Warm and Dry Extremities: positive No pedal edema and Other (pain in L hip. ) Lab Results 08/06/25 05:49 08/06/25 05:49 Other Labs: Lab Results x24hrs 08/07/25 08/06/25 08/06/25 Range/Units 07:52 21:01 16:46 POC Whole Bld Glucose 178 200 184 (70-100) mg/dL 08/06/25 Range/Units 11:38 POC Whole Bld Glucose 262 (70-100) mg/dL Assessment/Plan Problem List (1) Fracture of left hip: Impression: Patient presented after a mechanical fall 08/02/25.. Hip x-ray showed mildly displaced intertrochanteric fracture with extension to the proximal femoral diaphysis. Completed left hip pinning 08/03. POD #4 She is getting DVT prophylaxis with aspirin 325 mg daily, to be continued for 30 days. Patient does have a noted thrombocytopenia. Continue DVT prophylaxis unless platelet count drops below 50,000, and then would hold. Continue Tylenol as needed for mild pain, oxycodone as needed for moderate pain. Dilaudid stopped. PT consulted, recomend SNF. Patient is medically cleared 08/05/25, awaiting placement. This may be difficult to achieve since she does not have Medicare or Medicaid.But [facility]. Patient will be self-pay. -Because of her pain and crying out, I am asking orthopedics to please see the patient.I am also ordering plain films. Qualifiers: Encounter type: initial encounter Fracture type: closed Qualified Code(s): S72.002A - Fracture of unspecified part of neck of left femur, initial encounter for closed fracture (2) DM2 (diabetes mellitus, type 2): Impression: Patient takes metformin at home. Continue low-dose sliding scale while here. Carb controlled diet. [id number] glucose 08/05 was 217, 219, 218 and 340. 08/06 she was 189, 262, 184, 200. She has required about 10 units of insulin lispro with the low-dose sliding scale throughout the day. I was to 10 units of Lantus at night. I did not Today glucose has been 178, 283. I will order the lantus 10 units at night. Qualifiers: Diabetes mellitus complication status: without complication Diabetes mellitus [facility] insulin use: without predatory animal exterminator use Qualified Code(s): E11.9 - Type 2 diabetes mellitus without complications (3) Acute blood loss anemia: Impression: As below in problem #4 (4) Thrombocytopenia: Impression: The following plan is for the above two assessments: Patient presented with a hemoglobin of 12.4. 08/06 she was 9.7 (she was 9.8 08/05). Her platelets have been low since admission, at 128. 08/06 she was 88 (86 08/05). Surgical site does not show any signs of major bleeding, there is minimal drainage. Likely reactive after recent orthopedic surgery. Continue to monitor. Today there were no labs. I will order them for tomorrow. As stated above, will continue DVT prophylaxis with aspirin 325 mg daily. If platelets drop below 50,000, other signs of active bleeding, will hold. (5) HLD (hyperlipidemia): Impression: Continue statin. Qualifiers: Hyperlipidemia type: unspecified Qualified Code(s): E78.5 - Hyperlipidemia, unspecified (6) HTN (hypertension): Impression: Blood pressure stay was in the 130s to 150s. Blood pressure today is 166/81. Yesterday she was in the 150s over 70s. Occasionally 153/90. Continue losartan, amlodipine. In the outpatient setting she should see her primary care provider, Bailey Hi, DO and have her meds adjusted. Qualifiers: Hypertension type: unspecified Qualified Code(s): I10 - Essential (primary) hypertension (7) Depression: Impression: Continue buproprion. Qualifiers: Depression Type: unspecified Qualified Code(s): F32.A - Depression, unspecified (8) Murmur, cardiac: Impression: On physical exam she has the murmur of aortic stenosis. You can hear it at the apex, left lower sternal border, and loudest at the right upper sternal border and it does radiate to the carotids. She is asymptomatic. No chest pain, shortness of breath, or symptoms of syncope. I would recommend an echocardiogram in the outpatient setting.
--- NOTE | 2025-08-07 10:07 | XRAY Report ---
PROCEDURE: XR Hip w/Pelvis 2-3V LT INDICATIONS: s/p hip fx w repair and screams w pain TECHNIQUE: 3 view(s) of the pelvis and hip acquired. COMPARISON: None FINDINGS: Bones: Intertrochanteric fracture transfixed by femoral nail and compression screws in good position. Overlying skin virginie. Soft tissues: No suspicious soft tissue calcifications. IMPRESSION: Instrumented left intertrochanteric fracture in good position Reviewed by: Ritchie Herring MD on 08/07/2025 9:03 AM [facility] Approved by: Ritchie Herring MD on 08/07/2025 9:03 AM [place] Station ID: [id number]
[2025-08-07] MEDS: INSULIN GLARGINE-YFGN 300 UNIT/3 ML PEN SUBQ SCH (20:31)
[2025-08-08 05:32] LABS: HCT - HEMATOCRIT 30.8 % (37.0-47.0); HGB - HEMOGLOBIN 10.1 g/dL (12.0-16.0); MEAN PLATELET VOLUME 11.6 fL (7.9-10.8); NRBC ABSOLUTE COUNT (AUTO) 0.00 x10^3/uL; NUCLEATED RED BLOOD CELLS AUTO 0.0 /100WBC; PLT - PLATELET COUNT 132 10^3/uL (130-450); RED CELL DISTRIBUTION WIDTH 13.6 % (12.0-15.0)
[2025-08-08] MEDS: ACETAMINOPHEN 325 MG TABLET PO SCH (13:29)
--- NOTE | 2025-08-08 15:27 | PROVIDER PROGRESS NOTE ---
Subjective Prog Note Date Prog Note Date: 08/08/25 Prog Note Time: 15:22 Subjective Subjective: Rounded on patient this morning. She is having some pain in her left hip and throughout her left leg. Otherwise she is stable. No acute events overnight. Patient remains very anxious about mobility. She knows she needs to ambulate more. She does not frequently use opiates, but has constipation at baseline. Denies any fever/chills, lightheadedness, dizziness, abdominal pain or cramping. Current Medications Current Medications Current Medications: Current Medications Generic Name Dose Route Start Last Admin Trade Name Freq PRN Reason Stop Dose Admin Acetaminophen 650 mg 08/02/25 15:24 08/08/25 08:21 Acetaminophen 325 Mg Tablet PO 650 mg Q4HR PRN Administration Pain 1 to 4, or Fever Acetaminophen 650 mg 08/08/25 13:00 08/08/25 13:29 Acetaminophen 325 Mg Tablet PO 650 mg QID ALISSA Administration Amlodipine Besylate 5 mg 08/03/25 09:00 08/08/25 08:18 Amlodipine 5 Mg Tablet PO 5 mg DAILY ALISSA Administration Aspirin 325 mg 08/06/25 09:00 08/08/25 08:18 Aspirin Ec 325 Mg Tablet PO 325 mg DAILY ALISSA Administration Atorvastatin Calcium 20 mg 08/02/25 21:00 08/07/25 20:26 Atorvastatin 10 Mg Tablet PO 20 mg HS ALISSA Administration Baclofen 5 mg 08/02/25 17:00 08/08/25 03:30 Baclofen 10 Mg Tablet PO 5 mg TID PRN Administration Spasms Bupropion HCl 150 mg 08/03/25 09:00 08/08/25 09:49 Bupropion Xl 150 Mg Tablet PO 150 mg DAILY ALISSA Administration Calcium Carbonate/Glycine 500 mg 08/02/25 21:00 08/08/25 08:18 Calcium Carbonate Chew 500 Mg Tablet PO 500 mg BID ALISSA Administration Cholecalciferol 25 mcg 08/03/25 09:00 08/08/25 08:18 Cholecalciferol 25 Mcg Tablet PO 25 mcg DAILY ALISSA Administration Insulin Glargine-yfgn 10 unit 08/07/25 21:00 08/07/25 20:31 Insulin Glargine-Yfgn 300 Unit/3 Ml Pen SUBQ 10 unit QPM ALISSA Administration Insulin Human Lispro 3 - 11 unit 08/07/25 17:00 08/08/25 11:49 Insulin Lispro 300 Unit/3 Ml Pen SUBQ 5 unit 0800,1200,1700,2100 ALISSA Administration Protocol Losartan Potassium 100 mg 08/04/25 09:33 08/07/25 20:29 Losartan 50 Mg Tablet PO 100 mg 2100 ALISSA Administration Metoclopramide HCl 10 mg 08/03/25 09:18 Metoclopramide 10 Mg/2 Ml Vial IVP Q6HR PRN N/V not relieved by Zofran Nystatin 1 applic 08/03/25 09:00 08/08/25 08:17 Nystatin Powder 15 Gm TOP 1 applic BID ALISSA Administration Ondansetron HCl 4 mg 08/02/25 17:00 Ondansetron Odt 4 Mg Tablet TL Q4HR PRN Nausea / Vomiting Oxycodone HCl 5 mg 08/05/25 11:03 08/08/25 07:47 Oxycodone 5 Mg Tablet PO 5 mg Q6HR PRN Administration Pain 5 to 7 Polyethylene Glycol 17 gm 08/04/25 11:00 08/08/25 08:19 Polyethylene Glycol 3350 17 Gm Packet PO 17 gm DAILY ALISSA Administration Prochlorperazine Edisylate 10 mg 08/03/25 16:48 Prochlorperazine 10 Mg/2 Ml Vial IVP Q6HR PRN Nausea / Vomiting Senna 8.6 - 17.2 mg 08/07/25 08:00 08/08/25 08:18 Senna 8.6 Mg Tablet PO 8.6 mg DAILY ALISSA Administration Sodium Chloride 10 ml 08/02/25 15:24 Sodium Chloride Flush 0.9% 10 Ml Syringe IVP PRN PRN NEEDED PER PROVIDER ORDERS Sodium Chloride 10 ml 08/02/25 17:00 08/08/25 08:19 Sodium Chloride Flush 0.9% 10 Ml Syringe IVP 10 ml 0100,0900,1700 ALISSA Administration Objective Vital Signs/Intake & Output Reviewed Vital Signs: Yes Vital Signs: Vital Signs x48h Temp Pulse Resp BP Pulse Ox 08/08/25 10:40 36.4 C L 77 18 157/68 H 100 Intake & Output: Intake & Output 08/05/25 08/06/25 08/07/25 08/08/25 23:59 23:59 23:59 23:59 Intake Total 780 / 780 1040 / 1040 1740 / 1740 480 / 480 Output Total 900 / 900 1350 / 1350 1425 / 1425 1900 / 1900 Balance -120 / -120 -310 / -310 315 / 315 -1420 / -1420 Objective Comments/Other: GEN: No acute distress, allodynia with minimal movement. HEENT: NC/AT, normal appearance of external ears and nose. Hearing baseline. Cardiac: Regular rate and rhythm. Systolic ejection murmur at the left upper sternal border. Pulm: Lungs CTA bilaterally, no cough, no wheezes. Normal effort on room air Abdomen: Soft, nontender, nondistended. No rebound or guarding Extremities: Dressed incision along the left lateral thigh. Tender to palpation. Dressing is CDI. NVI distally. Painful left hip. Neuro: Face symmetric, CN II through XII intact grossly. No focal neurologic deficits. Psych: Mood euthymic with congruent affect. Reasonable insight. Lab Results 08/08/25 05:09 08/06/25 05:49 Other Labs: Lab Results x24hrs 08/08/25 08/08/25 08/08/25 Range/Units 11:32 07:42 05:09 WBC 8.5 (4.8-10.8) x10^3/uL RBC 3.42 L (4.20-5.40) 10^6/uL Hgb 10.1 L (12.0-16.0) g/dL Hct 30.8 L (37.0-47.0) % MCV 90.1 (81.0-99.0) fL MCH 29.5 (27.0-31.0) pg MCHC 32.8 (32.0-36.0) g/dL RDW 13.6 (12.0-15.0) % Plt Count 132 (130-450) 10^3/uL MPV 11.6 H (7.9-10.8) fL Neut # (Auto) 5.2 (1.5-6.6) 10^3/uL Lymph # (Auto) 2.1 (1.5-3.5) 10^3/uL [place] # (Auto) 1.0 (0.0-1.0) 10^3/uL Eos # (Auto) 0.2 (0.0-0.7) 10^3/uL Baso # (Auto) 0.1 (0.0-0.1) 10^3/uL Absolute Nucleated RBC 0.00 x10^3/uL Nucleated RBC % 0.0 /100WBC POC Whole Bld Glucose 191 153 (70-100) mg/dL 08/07/25 08/07/25 Range/Units 20:31 16:40 WBC (4.8-10.8) x10^3/uL RBC (4.20-5.40) 10^6/uL Hgb (12.0-16.0) g/dL Hct (37.0-47.0) % MCV (81.0-99.0) fL MCH (27.0-31.0) pg MCHC (32.0-36.0) g/dL RDW (12.0-15.0) % Plt Count (130-450) 10^3/uL MPV (7.9-10.8) fL Neut # (Auto) (1.5-6.6) 10^3/uL Lymph # (Auto) (1.5-3.5) 10^3/uL [place] # (Auto) (0.0-1.0) 10^3/uL Eos # (Auto) (0.0-0.7) 10^3/uL Baso # (Auto) (0.0-0.1) 10^3/uL Absolute Nucleated RBC x10^3/uL Nucleated RBC % /100WBC POC Whole Bld Glucose 245 219 (70-100) mg/dL Assessment/Plan Problem List (1) Fracture of left hip: Impression: Stable to improved Continues to be quite pain limited. More limited by anxiety than anything else. We discussed scheduling her pain medications out, specifically nonopiate options. She is trying to limit her opiates appropriately. Mechanical ground-level fall . Mildly displaced intertrochanteric fracture with extension of proximal femoral diaphysis. Left hip pinning completed 08/03. - Continue DVT prophylaxis ASA 325 daily x 30 days - Scheduled Tylenol for pain 650mg qid - As needed oxycodone for moderate pain - PT recommending SNF, medically safe for discharge to SNF - Recommend nonpharmacologic treatments including heat and ice - Diclofenac gel may help her associated osteoarthritic pain in her knees - Continue bowel meds while on opiates Qualifiers: Encounter type: initial encounter Fracture type: closed Qualified Code(s): S72.002A - Fracture of unspecified part of neck of left femur, initial encounter for closed fracture (2) DM2 (diabetes mellitus, type 2): Impression: Blood glucose have improved since starting Lantus, she was requiring approximately 10 units of insulin daily. Ranging 150 to 245. Dropped from 245 to 153 overnight. Will preference resuming her home metformin given normal kidney function and her stability postoperatively. Reportedly last A1c was around 5.5. She is on metformin 500 mg twice daily. - Discontinue nightly Lantus - Resume metformin 500 mg twice daily - If blood sugars stabilize tomorrow, can discontinue glucose checks - Continue sliding scale insulin for now Qualifiers: Diabetes mellitus care home insulin use: without machinist general use Diabetes mellitus complication status: without complication Qualified Code(s): E11.9 - Type 2 diabetes mellitus without complications (3) Acute blood loss anemia: (4) Thrombocytopenia: Impression: Stable. Patient's hemoglobin 10.1 this morning. Platelets 132. No evidence of major bleeding. Vital signs stable. Postoperatively hemoglobin dropped to 9.7 from 12.4 on admission. Platelets have been low since admission. - Repeat CBC a.m., transfuse Hgb less than 7 or signs of active bleeding - If plt drop below 50,000, hold ASA (5) HLD (hyperlipidemia): Impression: Continues to be stable on BR[employer]YING statin, continued. Qualifiers: Hyperlipidemia type: unspecified Qualified Code(s): E78.5 - Hyperlipidemia, unspecified (6) HTN (hypertension): Impression: Blood pressures remain elevated in the setting of pain. Patient with history of chronic essential hypertension. BR[employer] on losartan and amlodipine. - Continue losartan 100 mg daily, amlodipine 5 mg daily - Avoid further treatment adjustment in the acute care setting unless she develops signs of endorgan damage from her hypertension. Qualifiers: Hypertension type: unspecified Qualified Code(s): I10 - Essential (primary) hypertension (7) Depression: Impression: Stable on [employer] bupropion. Qualifiers: Depression Type: unspecified Qualified Code(s): F32.A - Depression, unspecified (8) Murmur, cardiac: Impression: Overall has a murmur that is most consistent with aortic stenosis. It is 4 out of 6 and audible on auscultation. She is asymptomatic. Specifically she denies any dyspnea, palpitation, chest pains. She has no syncopal episodes. No signs of presyncope. - Recommend outpatient follow-up with TTE within 6 months I spent a total of 42 minutes in the care of this patient today. This time was spent reviewing labs, vital signs, imaging, interviewing and examining the patient, and discussing plan of care with them and their other care providers
[2025-08-09] MEDS: DICLOFENAC SODIUM 1% GEL 50 GM TUBE TOP PRN (00:11)
[2025-08-09 06:40] LABS: HCT - HEMATOCRIT 31.4 % (37.0-47.0); HGB - HEMOGLOBIN 9.9 g/dL (12.0-16.0); MEAN PLATELET VOLUME 11.9 fL (7.9-10.8); NRBC ABSOLUTE COUNT (AUTO) 0.00 x10^3/uL; NUCLEATED RED BLOOD CELLS AUTO 0.0 /100WBC; PLT - PLATELET COUNT 182 10^3/uL (130-450); RED CELL DISTRIBUTION WIDTH 13.8 % (12.0-15.0)
[2025-08-09 06:57] LABS: BUN - BLOOD UREA NITROGEN 16.0 mg/dL (6-20); CARBON DIOXIDE - CO2 29.0 mmol/L (21-32); CREATININE 0.9 mg/dL (0.6-1.3); GFR - MDRD 62.0 (>89)
[2025-08-09 07:37] VITALS: O2SAT 98
[2025-08-09] MEDS: GLYCERIN PEDIATRIC SUPP PR PRN (09:43)
--- NOTE | 2025-08-09 11:45 | Discharge Summary ---
"Discharge Summary Admit Date: 08/02/25 Discharge Date: 08/09/25 Discharging Provider: Gagandeep Claros Primary Care Provider: Bailey Pittman Code Status: Attempt Resuscitation Discharge Facility Name: [facility] DIAGNOSES Discharge Diagnoses with Status of Each Condition: ## Fracture of left hip, stable to improved Mechanical ground-level fall 08/02. Mildly displaced intertrochanteric fracture with extension of proximal femoral diaphysis. Left hip pinning completed 08/03. She has been seen by PT recommending that she discharge to SNF for further rehab. She has been accepted to [facility], and discharges on 08/09 in stable condition. Continues to have significant pain. She is being treated with scheduled Tylenol, as needed oxycodone, and baclofen. Transition to Flexeril at discharge at patient's request. - Continue DVT prophylaxis ASA 325 daily x 30 days, EOT 09/05 - Tylenol 1 g 3 times daily scheduled, as needed oxycodone - Continue daily bowel regimen while on narcotics - Flexeril as needed for muscle spasms - Discharging to [facility] 09/08 in stable condition, Transport by BLS - Continue nonpharmacologic pain management including topical options and heat and ice as tolerated. ## DM2 (diabetes mellitus, type 2), Chronic, stable Was treated postoperatively with insulin, requiring up to 10 units of insulin daily. This controlled her blood sugars ranging 150-200. Transition to her home metformin 500 mg twice daily prior to discharge. - Continue metformin 500 mg twice daily - Outpatient A1c recommended with primary care - Recommend primary care provider also check B12 level ## Acute blood loss anemia, stable ## Thrombocytopenia, Resolved Postoperatively hemoglobin dropped to 9.7 from 12.4 on admission. Platelets have been low since admission. On discharge hemoglobin 9.9. Platelets 182. - Recommend CBC with primary care doctor at next appointment - If not normalizing, should evaluate for causes of anemia - If plt drop below 50,000, hold ASA ## HLD (hyperlipidemia) Continues to be stable on MG[employer]IST statin, continued. ## HTN (hypertension) Blood pressures remain elevated in the setting of pain. Patient with history of chronic essential hypertension. MGMT SPECIALIST on losartan and amlodipine. - Continue losartan 100 mg daily, amlodipine 5 mg daily ## Depression Stable on MGMT SPECIALIST bupropion. ## Murmur, cardiac Overall has a murmur that is most consistent with aortic stenosis. It is 4 out of 6 and audible on auscultation. She is asymptomatic. Specifically she denies any dyspnea, palpitation, chest pains. She has no syncopal episodes. No signs of presyncope. - Recommend outpatient follow-up with TTE within 6 months HPI History of Present Illness: Patient is a 69 year old female with a history of insulin dependent diabetes mellitus, hypertension who presents after a ground level fall. Per patient, since 2022, and her TIA, she has had increased episodes of vertigo. When seasons change, like right now from fall to winter, she has increased episodes of vertigo. She has bilateral ear fullness, as well as sinus congestion which triggers this. This morning, she was walking towards the kitchen. She leaned forward to take out her tapioca pudding, and had an episode of vertigo, and fell forward onto her left hip. She has had severe pain since then. He has been Past medical history includes TIA, hyperlipidemia, hypertension, [id number] diabetes mellitus. She has no cardiac history. She does have chronic arthritis in multiple joints, requiring her to use a walker to ambulate. Medications include metformin, losartan, amlodipine, bupropion. She is not on an blood thinners. She has no known drug allergies. Codeine does cause her to feel nauseous. Surgical history includes , hysterectomy. She has not had any adverse reactions to anesthesia. She denies any alcohol use. She uses edible marijuana for pain relief. She smokes half a pack of cigarettes per day. She lives with her son. Ambulates with walker. CONSULTS | PROCEDURES Consultations: Orthopedic surgery Procedures: Hip pinning on 08/03 Hip XR 08/02 and 08/07 Knee XR 08/02 HOSPITAL COURSE Hospital Course: Patient was admitted following a ground-level fall. She was found to have a left hip fracture. This was successfully pinned on 08/03. Per orthopedic recommendations, she is weightbearing as tolerated. She worked with PT recommending discharge to SNF. She had an extended hospitalization as SNF search was ongoing. She has been accepted at [facility] for further rehab. Patient was seen and evaluated on day of discharge. She is having some pain related to her constipation, but she was able to have an effort full bowel movement on the morning of discharge. She discharged to SNF on 08/09 in stable condition. Her course been complicated by postoperative pain. She is being managed with scheduled Tylenol, as needed oxycodone, and Flexeril at her request. Baclofen was not effective for her. Topical agents including lidocaine patch and topical Voltaren gel were less effective. She has had some narcotic associated constipation and is on a bowel regimen for this as well. She had a bowel movement on day of discharge. She should continue on ASA 325 mg daily for VTE prophylaxis for 30 days per orthopedics. Incidentally she was found to have a cardiac murmur suggestive of aortic stenosis. Given that she is asymptomatic from this, it was recommended that she follow-up outpatient for echocardiography and further evaluation. ALLERGIES Allergies Allergy/AdvReac Type Severity Reaction Status Date / Time codeine AdvReac Mild Itching Verified 08/02/25 10:07 MEDICATIONS Ambulatory Orders Medication Instructions Recorded Confirmed acetaminophen 500 mg capsule 1,000 mg (2 x 500 mg) PO TID #180 08/09/25 caps amlodipine 5 mg tablet 5 mg PO DAILY #30 tabs 08/09 aspirin 325 mg tablet,delayed 325 mg PO DAILY #28 tabs 08/09/25 release atorvastatin 20 mg tablet 20 mg PO HS #30 tabs 5 baclofen 10 mg tablet 5 mg (1/2 x 10 mg) PO TID IN N 08/09/25 Spasms #45 tabs bupropion HCl 150 mg 24 hr tablet, 150 mg PO DAILY #30 tabs 08/09/25 08/02/25 extended release cyclobenzaprine 5 mg tablet 5 mg PO TID PRN muscle spa sm #45 08/09/25 tabs diclofenac sodium 1 % topical gel 2 g topical QID PRN Mild Pain 08/09/25 (Arthritis Pain (diclofenac)) (Level 1-3) #100 grams losartan 100 mg tablet 100 mg PO DAILY PM #30 tabs 08/09/25 metformin 500 mg tablet,extended 500 mg PO BID #60 tab s 08/09/25 release 24 hr oxycodone 5 mg tablet 5 mg PO Q6HR PRN Pain 5 to 7 #40 08/09/25 tabs polyethylene glycol 3350 17 gram 17 g PO DAILY #30 ea 08/09/25 oral powder packet sennosides 8.6 mg tablet (Senna 8.6 mg PO BID #60 tabs 08/09/25 Lax) PHYSICAL EXAM AT DISCHARGE Vital Signs: Vital Signs x48h Temp Pulse Resp BP Pulse Ox 08/09/25 07:36 36.3 C L 80 18 153/79 H 98 LABS 08/09/25 05:44 08/09/25 05:44 FOLLOW UP Follow Up: Follow-up with PCP in the next 2 to 4 weeks Will need follow-up regarding aortic stenosis and consideration for echocardiography Follow-up CBC in 2 to 4 weeks to evaluate for resolution of anemia postoperative TIME SPENT Time Spent in Discharge (Minutes): 41 Discharge Plan Discharge Patient Disposition: [facility] DC/Xfer Condition: Stable Medically Cleared Date:: 08/07/25 Prescriptions: New aspirin 325 mg Tablet,Delayed Release (Dr/Ec) 325 mg PO DAILY Qty: 28 0RF baclofen 10 mg Tablet 5 mg PO TID PRN (Reason: Spasms) Qty: 45 0RF acetaminophen 500 mg capsule 1,000 mg PO TID Qty: 180 0RF diclofenac sodium [Arthritis Pain (diclofenac)] 1 % Gel 2 g topical QID PRN (Reason: Mild Pain (Level 1-3)) Qty: 100 0RF sennosides [Senna Lax] 8.6 mg Tablet 8.6 mg PO BID Qty: 60 0RF Rx Instructions: Take while on narcotics to prevent constipation polyethylene glycol 3350 17 gram Powder In Packet 17 g PO DAILY Qty: 30 0RF Rx Instructions: Take while on narcotics to prevent constipation oxycodone 5 mg Tablet 5 mg PO Q6HR PRN (Reason: Pain 5 to 7) Qty: 40 0RF cyclobenzaprine 5 mg tablet 5 mg PO TID PRN (Reason: muscle spasm) Qty: 45 0RF Continued atorvastatin 20 mg tablet 20 mg PO HS Qty: 30 0RF Patient Comments: TAKE ONE TABLET BY MOUTH NIGHTLY AT BEDTIME for cholesterol amlodipine 5 mg tablet 5 mg PO DAILY Qty: 30 0RF losartan 100 mg tablet 100 mg PO DAILY PM Qty: 30 0RF Patient Comments: TAKE ONE TABLET BY MOUTH ONE TIME DAILY for blood pressure metformin 500 mg tablet extended release 24 hr 500 mg PO BID Qty: 60 0RF Patient Comments: TAKE ONE TABLET BY MOUTH TWICE DAILY for diabetes bupropion HCl 150 mg tablet extended release 24 hr 150 mg PO DAILY Qty: 30 0RF Patient Comments: TAKE ONE TABLET BY MOUTH EVERY MORNING Discontinued ibuprofen [Advil] 200 mg tablet 400 mg PO BID PRN (Reason: fever or pain) Activity Restrictions: Activity as Tolerated Diet: Regular Health Concerns: You are being discharged from the hospital after sustaining a hip fracture that was managed with surgical pinning. You are still having significant pain from your surgical site. You are being prescribed opiates at discharge. Due to your injury, the physical therapist is recommended ongoing rehab. You are being discharged to a fdc facility for ongoing rehab. In order to continue to get better, please follow these instructions. Pain Management: * Continue prescribed opioid regimen for pain control. Multimodal analgesia is recommended; acetaminophen may be used as adjuncts if not contraindicated. * Opioid dosing should be titrated to maintain comfort and facilitate participation in physical therapy. Monitor for side effects, including sedation and confusion. * Assess pain regularly; sudden or worsening pain may indicate complications such as hardware failure, infection, or osteonecrosis and should prompt evaluation. Bowel Regimen: Opioids increase risk of constipation. Continue bowel regimen as prescribed (e.g., stool softeners, laxatives, adequate hydration). Monitor for signs of constipation or ileus and adjust regimen as needed. Delirium Prevention: Minimize use of medications that increase delirium risk. Use non-opioid Pain relievers when possible. Monitor for changes in mental status; avoid benzodiazepines unless specifically indicated. Venous Thromboembolism (VTE) Prophylaxis: You are being prescribed aspirin 325 mg daily. Continue taking this for 30-day. To prevent blood clots following your procedure. Rehabilitation and Mobility: Early mobilization is critical; participate in physical and occupational therapy as directed. The surgical team is not recommending any weightbearing precautions at this time. You can bear weight as tolerated. Use assistive devices as needed to prevent falls. Skin Care and Pressure Ulcer Prevention: Reposition frequently and use pressure-relieving surfaces to prevent pressure ulcers. Secondary Prevention: Assess and manage osteoporosis (calcium, vitamin D, bisphosphonates as indicated). Fall risk assessment and prevention strategies should be implemented. Contact Information: Notify the SNF staff and surgical team promptly for fever, wound drainage, severe pain, confusion, or inability to participate in rehabilitation. Additional Instructions: All medications should be reviewed regularly for appropriateness and potential interactions, especially opioid and gabapentinoid combinations. Print Language: Chinese Patient Instructions: Surg Dc Stand Alone Forms: SNF Discharge Follow-up Care: BAILEY PITTMAN DO [Physician No Access, Family Practice] Vitals documented within 30 minutes of discharge?: Yes"
[2025-08-09] MEDS: COD LIVER OIL/ZINC OXIDE 113 GM TUBE TOP PRN (13:14)
[2025-08-09 14:42] VITALS: BP 147/80; TEMP 97.7
== END 2025-08-09 14:30 | DRG 481 ==
LOC: EDSEX → ED 09:57 → SUATTDRO 14:47 → MS2 14:47
PROVIDERS: ADMIT Internal Medicine; ATTEND Student in an Organized Health Care Education/Training Program
PROC: HIPNAIL (2025-08-03 09:30)
DX: Y92.230 Patient room in hospital as the place of occurrence of the external cause; R42 Dizziness and giddiness; S72.102A Unspecified trochanteric fracture of left femur, initial encounter for closed fracture; M19.90 Unspecified osteoarthritis, unspecified site; I10 Essential (primary) hypertension; G89.18 Other acute postprocedural pain; E78.5 Hyperlipidemia, unspecified; E11.9 Type 2 diabetes mellitus without complications; R01.1 Cardiac murmur, unspecified; W01.0XXA Fall on same level from slipping, tripping and stumbling without subsequent striking against object, initial encounter; F32.A Depression, unspecified; D69.6 Thrombocytopenia, unspecified; I69.898 Other sequelae of other cerebrovascular disease; F17.210 Nicotine dependence, cigarettes, uncomplicated; Z79.84 Long term (current) use of oral hypoglycemic drugs; D62 Acute posthemorrhagic anemia; T40.605A Adverse effect of unspecified narcotics, initial encounter; K59.03 Drug induced constipation; Y92.009 Unspecified place in unspecified non-institutional (private) residence as the place of occurrence of the external cause